=== PATIENT | male | born 1960 | race Caucasian/White ===

== ENCOUNTER 2017-11-08 14:21 | Day surgery (SDC) | payer MEDICARE ==
[~2017-11-08] VITALS: Ht 167.6 cm; Wt 91.1 kg
[~2017-11-08 14:21] MED LIST: ALPR.5; ALPR.5 PO; AMLO10 PO; ASPI325EC PO; AZIT500 PO; AZOR; BENAML10/2 PO; BUME1 PO; BUME2 PO; BUPR150ER PO; BUPR75 PO; CLOB.05TC TP; CLON.1 PO; DULO60 PO; Depo-Testo100 MG/1 M IM; ESCI10 PO; Esgic Tablet1 EACH PO; FISH1000 PO; FURO40 PO; GABA300 PO; HYDACE5 PO; HYDACE5325 PO; HYDROCODONE; IBUP600 PO; IBUP800 PO; LEVE500 PO; LOSA50; METH40; METO50 PO; METO50ER PO; MINO100 PO; MORP60ER; NAPR375 PO; NORITATE; OLME20 PO; ONDA4 PO; OXYACE5T PO; OXYC40ER; OXYC40ER PO; OXYC5; OXYC5 PO; PHENA100 PO; POTCHL10ER PO; POTCHL20ER PO; SPIR25 PO; TAMS.4ER PO; TESTOSTERO200 MG/1 M IM; TESTOSTERONE CYPIONA INJ; TRAM50; TRAM50 PO; VENL25 PO; VENL75ER PO; ZOLP10; ZOLP10 PO; ZOLP12.5 PO; Zofran Odt4 MG SL; [UNRECOGNIZED DRUG - OTHER] PO; [UNRECOGNIZED DRUG - REMARK]
[2017-11-08] MEDS ORDERED: LEVSOD75 (15:23)
[2017-11-08] MEDS ORDERED: GABA300 (15:23)
== END 2017-11-08 16:17 | disposition home or self-care (01) ==
LOC: ORSCSDS 14:21
PROVIDERS: Surgery
PROC: 0DBL8ZX Excision of Transverse Colon, Via Natural or Artificial Opening Endoscopic, Diagnostic (ICD-10-PCS; principal; 2017-11-08 15:30)
DX: Z12.11 Encounter for screening for malignant neoplasm of colon (principal); D12.3 Benign neoplasm of transverse colon; Z86.010 Personal history of colon polyps; Z83.71 Family history of colonic polyps; I12.9 Hypertensive chronic kidney disease with stage 1 through stage 4 chronic kidney disease, or unspecified chronic kidney disease; N18.9 Chronic kidney disease, unspecified; R73.03 Prediabetes; E78.5 Hyperlipidemia, unspecified; F90.9 Attention-deficit hyperactivity disorder, unspecified type; Z79.899 Other long term (current) drug therapy
CPT/HCPCS: 88305; J7120

== ENCOUNTER 2020-10-27 09:35 | Emergency (ER) | payer MEDICARE ==
[~2020-10-27] VITALS: Ht 167.6 cm; Wt 83.9 kg
[~2020-10-27 09:35] MED LIST changes: +GABA300; +LEVSOD75
[2020-10-27 10:20] LABS: Chloride (POC) 103 mmol/L (98-108); Creatinine (POC) 1.5 mg/dL (0.8-1.3); Glucose (ISTAT POC) 127 mg/dL (70-99); Hemoglobin (POC) 15.3 g/dL (13.5-17.5); Potassium (POC) 5.6 mmol/L (3.5-5.5); Sodium (POC) 140 mmol/L (135-148); Total CO2 (POC) 29 mmol/L (21-32)
[2020-10-27] MEDS ORDERED: BUMETANIDE2 M2 PO (10:34)
[2020-10-27] MEDS ORDERED: MELOXICAM TAB 15M (10:34)
[2020-10-27] MEDS ORDERED: TRAMADOL HCL TAB 50M (10:35)
[2020-10-27] MEDS ORDERED: METPRE4DP PO (10:35)
[2020-10-27 11:09] LABS: U Amphetamine Screen DETECTED
[2020-10-27 11:10] LABS: U Barbituate Screen Not Detected; U Benzodiazapine Screen Not Detected; U Buprenorphine Screen Not Detected; U Cannabinoids Screen Not Detected; U Cocaine Screen Not Detected; U Methadone Screen Not Detected; U Methamphetamine Screen DETECTED; U Opiates Screen Not Detected; U Oxycodone Screen Not Detected; U Phencyclidine Screen Not Detected; U Propoxyphene Screen Not Detected
[2020-10-27 11:15] LABS: BASOPHILS ABSOLUTE AUTO 0.03 K/mm3 (0.00-0.23); BASOPHILS PERCENT AUTO 1 % (0-2); EOSINOPHILS ABSOLUTE AUTO 0.14 K/mm3 (0.00-0.68); EOSINOPHILS PERCENT AUTO 3 % (0-6); Hematocrit 44.6 % (37.0-53.0); Hemoglobin 14.6 g/dL (13.5-17.5); IMMATURE GRAN ABSOLUTE AUTO 0.01 K/mm3 (0.00-0.10); IMMATURE GRAN PERCENT AUTO 0 % (0-1); LYMPHOCYTES ABSOLUTE AUTO 0.78 K/mm3 (0.84-5.20); LYMPHOCYTES PERCENT AUTO 16 % (21-46); MONOCYTES ABSOLUTE AUTO 0.37 K/mm3 (0.16-1.47); MONOCYTES PERCENT AUTO 8 % (4-13); Mean Corpuscular HGB 31.7 pg (26.0-34.0); Mean Corpuscular HGB Conc 32.7 g/dL (31.5-36.5); Mean Corpuscular Volume 97 fL (80-100); Mean Platelet Volume 9.3 fL (9.1-12.4); NEUTROPHILS ABSOLUTE AUTO 3.45 K/mm3 (1.96-9.15); NEUTROPHILS PERCENT AUTO 72 % (41-73); Platelet Count 232 K/mm3 (150-400); RDW Coefficient Variation 14.1 % (11.7-14.2); Red Blood Cell Count 4.61 M/mm3 (4.30-5.90); White Blood Cell Count 4.78 K/mm3 (4.00-11.30)
[2020-10-27 11:35] LABS: Alanine Aminotransfer (ALT/SGP 35 U/L (12-78); Albumin/Globulin Ratio 1.1 (0.8-1.8); Alk Phos 92 U/L (50-136); Anion Gap 6 mmol/L (6-16); Aspartate Aminotrans (AST/SGOT 47 U/L (12-37); Bilirubin, Total 0.4 mg/dL (0.1-1.0); Blood Urea Nitrogen 21 mg/dL (8-24); Bun/Creatinine Ratio 14.5 (12.0-20.0); CO2, Blood 30 mmol/L (21-32); Calcium, Blood 9.3 mg/dL (8.5-10.1); Chloride, Blood 104 mmol/L (98-108); Creatinine, Blood 1.45 mg/dL (0.60-1.20); Ethanol (Alcohol), Blood, Med <3 mg/dL; Globulin, Blood 3.6 g/dL (2.2-4.0); Glomerular Filtration Rate 52 (60-); Glucose, Blood 115 mg/dL (70-99); Potassium, Blood 3.3 mmol/L (3.5-5.5); Sodium, Blood 140 mmol/L (136-145); Total Protein, Blood 7.6 g/dL (6.4-8.2)
[2020-10-27] MEDS ORDERED: CYCL10 PO (13:13)
[2020-10-27] MEDS ORDERED: TRAM50 PO (13:13)
== END 2020-10-27 13:55 | disposition home or self-care (01) ==
LOC: ER 09:35
PROVIDERS: Emergency Medicine
DX: S01.01XA Laceration without foreign body of scalp, initial encounter (principal); M54.5 Low back pain; R56.9 Unspecified convulsions; N18.9 Chronic kidney disease, unspecified; Z99.2 Dependence on renal dialysis; Z79.899 Other long term (current) drug therapy; W18.30XA Fall on same level, unspecified, initial encounter
CPT/HCPCS: 12002; 70450; 72100; 72125; 80047; 80053; 85014; 85025; 96374-59; 96375-59; 99284-25; A9270; G0480; J2060; J2405; J3010

== ENCOUNTER 2020-11-06 12:46 | Emergency (ER) | payer MEDICARE ==
[~2020-11-06] VITALS: Ht 177.8 cm; Wt 95.2 kg
[~2020-11-06 12:46] MED LIST changes: +BUMETANIDE2 M2 PO; +CYCL10 PO; +MELOXICAM TAB 15M; +METPRE4DP PO; +TRAMADOL HCL TAB 50M
== END 2020-11-06 13:05 | disposition home or self-care (01) ==
LOC: ER 12:46
DX: S01.01XD Laceration without foreign body of scalp, subsequent encounter (principal); N18.9 Chronic kidney disease, unspecified; Z79.899 Other long term (current) drug therapy; W18.30XD Fall on same level, unspecified, subsequent encounter

== ENCOUNTER 2021-05-02 13:59 | Emergency (ER) | payer MEDICARE ==
[~2021-05-02] VITALS: Ht 170.2 cm; Wt 83.9 kg
[~2021-05-02 13:59] MED LIST changes: -BUMETANIDE2 M2 PO; -MELOXICAM TAB 15M; -TRAM50
[2021-05-02 14:43] LABS: BASOPHILS ABSOLUTE AUTO 0.03 K/mm3 (0.00-0.23); BASOPHILS PERCENT AUTO 0 % (0-2); EOSINOPHILS PERCENT AUTO 0 % (0-6); Hematocrit 37.8 % (37.0-53.0); Hemoglobin 13.1 g/dL (13.5-17.5); IMMATURE GRAN ABSOLUTE AUTO 0.03 K/mm3 (0.00-0.10); IMMATURE GRAN PERCENT AUTO 0 % (0-1); LYMPHOCYTES ABSOLUTE AUTO 0.68 K/mm3 (0.84-5.20); LYMPHOCYTES PERCENT AUTO 7 % (21-46); MONOCYTES ABSOLUTE AUTO 0.41 K/mm3 (0.16-1.47); MONOCYTES PERCENT AUTO 4 % (4-13); Mean Corpuscular HGB 32.8 pg (26.0-34.0); Mean Corpuscular HGB Conc 34.7 g/dL (31.5-36.5); Mean Corpuscular Volume 95 fL (80-100); Mean Platelet Volume 9.4 fL (9.1-12.4); NEUTROPHILS ABSOLUTE AUTO 9.17 K/mm3 (1.96-9.15); NEUTROPHILS PERCENT AUTO 89 % (41-73); Platelet Count 201 K/mm3 (150-400); RDW Coefficient Variation 14.2 % (11.7-14.2); RDW Standard Deviation 48.9 fL (35.1-46.3); Red Blood Cell Count 3.99 M/mm3 (4.30-5.90); White Blood Cell Count 10.32 K/mm3 (4.00-11.30)
[2021-05-02 15:15] LABS: Alanine Aminotransfer (ALT/SGP 31 U/L (12-78); Albumin, Blood 3.3 g/dL (3.4-5.0); Albumin/Globulin Ratio 0.9 (0.8-1.8); Alk Phos 89 U/L (50-136); Anion Gap 20 mmol/L (6-16); Aspartate Aminotrans (AST/SGOT 50 U/L (12-37); Bilirubin, Total 0.4 mg/dL (0.1-1.0); Blood Urea Nitrogen 25 mg/dL (8-24); Bun/Creatinine Ratio 23.6 (12.0-20.0); CO2, Blood 17 mmol/L (21-32); Calcium, Blood 8.5 mg/dL (8.5-10.1); Chloride, Blood 104 mmol/L (98-108); Creatinine, Blood 1.06 mg/dL (0.60-1.20); Globulin, Blood 3.5 g/dL (2.2-4.0); Glomerular Filtration Rate >60 (60-); Glucose, Blood 138 mg/dL (70-99); Potassium, Blood 3.3 mmol/L (3.5-5.5); Sodium, Blood 141 mmol/L (136-145); Total Protein, Blood 6.8 g/dL (6.4-8.2); Troponin I <0.015 ng/mL (0.000-0.040)
[2021-05-02] MEDS ORDERED: ZOLOFT50 MG PO (15:19)
[2021-05-02] MEDS ORDERED: CATAPRES0.1 MG PO (15:19)
[2021-05-02] MEDS ORDERED: LOSA50 PO (15:22)
[2021-05-02] MEDS ORDERED: PANTOPRAZOLE SO40 M2 PO (15:43)
[2021-05-02] MEDS ORDERED: KLOR-CON 1010 ME5 PO (15:44)
[2021-05-02] MEDS ORDERED: PREGABALIN75 MG PO (15:45)
[2021-05-02] MEDS ORDERED: SPIRONOLACTONE25 MG PO (15:45)
[2021-05-02] MEDS ORDERED: BUMETANIDE2 M2 PO (15:46)
[2021-05-02] MEDS ORDERED: DEPO-TESTO200 MG/16 SC (15:46)
[2021-05-02] MEDS ORDERED: TRAM50 PO (15:47)
[2021-05-02] MEDS ORDERED: MOBIC15 MG PO (15:48)
[2021-05-02] MEDS ORDERED: FAMO20 PO (17:14)
[2021-05-02] MEDS ORDERED: ACET500 PO (17:14)
[2021-05-02] MEDS ORDERED: IBUP400 PO (17:14)
[2021-05-02] MEDS ORDERED: OXYC5 PO (20:49)
== END 2021-05-02 21:21 | disposition home or self-care (01) ==
LOC: ER 13:59
PROVIDERS: Emergency Medicine
DX: M51.16 Intervertebral disc disorders with radiculopathy, lumbar region (principal); G89.29 Other chronic pain; R20.2 Paresthesia of skin; R00.0 Tachycardia, unspecified; Z79.899 Other long term (current) drug therapy; Z79.891 Long term (current) use of opiate analgesic; N18.9 Chronic kidney disease, unspecified; G40.909 Epilepsy, unspecified, not intractable, without status epilepticus
CPT/HCPCS: 71046; 72132; 80053; 84484; 85025; 85651; 86140; 93005; 93010; 96365; 96366; 96375; 96376; 99285-25; A9270; J1100; J1170; J1885; J2270; J3475; J7030; Q9967

== ENCOUNTER 2021-05-12 06:54 | Emergency (ER) | payer MEDICARE ==
[~2021-05-12] VITALS: Ht 170.2 cm; Wt 83.0 kg
[~2021-05-12 06:54] MED LIST changes: +ACET500 PO; +BUMETANIDE2 M2 PO; +CATAPRES0.1 MG PO; +DEPO-TESTO200 MG/16 SC; +FAMO20 PO; +IBUP400 PO; +KLOR-CON 1010 ME5 PO; +LOSA50 PO; +MOBIC15 MG PO; +PANTOPRAZOLE SO40 M2 PO; +PREGABALIN75 MG PO; +SPIRONOLACTONE25 MG PO; +ZOLOFT50 MG PO
[2021-05-12] MEDS ORDERED: METPRE4DP PO (08:14)
== END 2021-05-12 08:56 | disposition home or self-care (01) ==
LOC: ER 06:54
DX: Z04.3 Encounter for examination and observation following other accident (principal); W19.XXXA Unspecified fall, initial encounter
CPT/HCPCS: 99283; A9270; J7512

== ENCOUNTER 2021-05-18 23:20 | Emergency (ER) | payer OTHER, MEDICARE ==
[~2021-05-18] VITALS: Ht 170.2 cm; Wt 82.5 kg
== END 2021-05-19 01:01 | disposition home or self-care (01) ==
LOC: ER 23:20
DX: S30.0XXA Contusion of lower back and pelvis, initial encounter (principal); I12.9 Hypertensive chronic kidney disease with stage 1 through stage 4 chronic kidney disease, or unspecified chronic kidney disease; N18.9 Chronic kidney disease, unspecified; G40.909 Epilepsy, unspecified, not intractable, without status epilepticus; Z79.899 Other long term (current) drug therapy; W01.0XXA Fall on same level from slipping, tripping and stumbling without subsequent striking against object, initial encounter
CPT/HCPCS: 96374; 99283; A9270; J1885

== ENCOUNTER 2021-05-30 01:45 | Emergency (ER) | payer MEDICARE ==
[~2021-05-30] VITALS: Ht 170.2 cm; Wt 83.9 kg
[2021-05-30] MEDS ORDERED: CYCL10 PO (05:33)
[2021-05-30] MEDS ORDERED: IBUP600 PO (05:33)
== END 2021-05-30 05:50 | disposition home or self-care (01) ==
LOC: ER 01:45
DX: G89.29 Other chronic pain (principal); M54.9 Dorsalgia, unspecified; I12.9 Hypertensive chronic kidney disease with stage 1 through stage 4 chronic kidney disease, or unspecified chronic kidney disease; N18.9 Chronic kidney disease, unspecified; Z79.899 Other long term (current) drug therapy
CPT/HCPCS: 96372; 99283-25; A9270; J1885

== ENCOUNTER 2021-05-31 14:17 | Emergency (ER) | payer MEDICARE ==
[~2021-05-31] VITALS: Ht 170.2 cm; Wt 83.0 kg
== END 2021-05-31 15:48 | disposition home or self-care (01) ==
LOC: ER 14:17
DX: G89.29 Other chronic pain (principal); M54.50 Low back pain, unspecified; G40.909 Epilepsy, unspecified, not intractable, without status epilepticus; I10 Essential (primary) hypertension; Z79.899 Other long term (current) drug therapy
CPT/HCPCS: 96372; 99283-25; A9270; J1885

== ENCOUNTER 2021-06-04 17:49 | Emergency (ER) | payer MEDICARE ==
[~2021-06-04] VITALS: Ht 170.2 cm; Wt 83.9 kg
[2021-06-04 18:37] LABS: BASOPHILS ABSOLUTE AUTO 0.04 K/mm3 (0.00-0.23); BASOPHILS PERCENT AUTO 1 % (0-2); EOSINOPHILS ABSOLUTE AUTO 0.15 K/mm3 (0.00-0.68); EOSINOPHILS PERCENT AUTO 3 % (0-6); Hematocrit 36.8 % (37.0-53.0); Hemoglobin 12.1 g/dL (13.5-17.5); IMMATURE GRAN ABSOLUTE AUTO 0.07 K/mm3 (0.00-0.10); IMMATURE GRAN PERCENT AUTO 1 % (0-1); LYMPHOCYTES ABSOLUTE AUTO 1.06 K/mm3 (0.84-5.20); LYMPHOCYTES PERCENT AUTO 19 % (21-46); MONOCYTES ABSOLUTE AUTO 0.43 K/mm3 (0.16-1.47); MONOCYTES PERCENT AUTO 8 % (4-13); Mean Corpuscular HGB 33.4 pg (26.0-34.0); Mean Corpuscular HGB Conc 32.9 g/dL (31.5-36.5); Mean Corpuscular Volume 102 fL (80-100); NEUTROPHILS ABSOLUTE AUTO 3.81 K/mm3 (1.96-9.15); NEUTROPHILS PERCENT AUTO 69 % (41-73); RDW Coefficient Variation 17.3 % (11.7-14.2); RDW Standard Deviation 63.8 fL (35.1-46.3); Red Blood Cell Count 3.62 M/mm3 (4.30-5.90); White Blood Cell Count 5.56 K/mm3 (4.00-11.30)
[2021-06-04 18:40] LABS: Mean Platelet Volume 9.8 fL (9.1-12.4); Platelet Count 161 K/mm3 (150-400)
[2021-06-04 18:44] LABS: Albumin, Blood 3.2 g/dL (3.4-5.0); Albumin/Globulin Ratio 1.1 (0.8-1.8); Bilirubin, Total 0.6 mg/dL (0.1-1.0); Bun/Creatinine Ratio 11.3 (12.0-20.0); Calcium, Blood 7.6 mg/dL (8.5-10.1); Creatinine, Blood 2.22 mg/dL (0.60-1.20); Globulin, Blood 2.8 g/dL (2.2-4.0); Potassium, Blood 3.7 mmol/L (3.5-5.5)
[2021-06-04 18:53] LABS: Acetaminophen, Random <2.0 ug/mL (10.0-30.0); Ethanol (Alcohol), Blood, Med <3 mg/dL
[2021-06-04 19:09] LABS: Influenza A, PCR NEGATIVE (NEGATIVE); Influenza B, PCR NEGATIVE (NEGATIVE); Resp Syncytial Virus, PCR NEGATIVE (NEGATIVE); SARS-Cov-2 (COVID-19) PCR, MMC NEGATIVE (NEGATIVE)
== END 2021-06-04 21:43 | disposition short-term general hospital (02) ==
LOC: ER 17:49
PROVIDERS: Student in an Organized Health Care Education/Training Program
DX: N17.9 Acute kidney failure, unspecified (principal); F11.90 Opioid use, unspecified, uncomplicated; R15.9 Full incontinence of feces; R32 Unspecified urinary incontinence; R20.0 Anesthesia of skin; E83.42 Hypomagnesemia; G89.29 Other chronic pain; M54.50 Low back pain, unspecified; I12.9 Hypertensive chronic kidney disease with stage 1 through stage 4 chronic kidney disease, or unspecified chronic kidney disease; N18.9 Chronic kidney disease, unspecified; G40.909 Epilepsy, unspecified, not intractable, without status epilepticus; Z20.822 Contact with and (suspected) exposure to COVID-19; Z79.899 Other long term (current) drug therapy
CPT/HCPCS: 0241U; 36415; 72128; 72131; 80053; 83735; 85025; 93005; 93010; 96365; 99285-25; A9270; G0480; J3475; J7120

== ENCOUNTER 2021-06-15 22:59 | Emergency (ER) | payer MEDICARE ==
[~2021-06-15] VITALS: Ht 170.2 cm; Wt 83.0 kg
== END 2021-06-16 01:20 | disposition home or self-care (01) ==
LOC: ER 22:59
DX: S09.90XA Unspecified injury of head, initial encounter (principal); M54.9 Dorsalgia, unspecified; G89.29 Other chronic pain; W01.10XA Fall on same level from slipping, tripping and stumbling with subsequent striking against unspecified object, initial encounter; Z79.899 Other long term (current) drug therapy; Z79.52 Long term (current) use of systemic steroids; I10 Essential (primary) hypertension; N18.9 Chronic kidney disease, unspecified; G40.909 Epilepsy, unspecified, not intractable, without status epilepticus
CPT/HCPCS: 70450; 72125; 96372; 99284-25; A9270; J1885

== ENCOUNTER 2021-06-18 04:06 | Emergency (ER) | payer MEDICARE ==
[~2021-06-18] VITALS: Ht 177.8 cm; Wt 90.7 kg
[2021-06-18] MEDS ORDERED: METPRE4DP PO (08:39)
[2021-06-18] MEDS ORDERED: GABA300 PO (08:40)
[2021-06-18] MEDS ORDERED: Robaxin750 MG PO (08:40)
== END 2021-06-18 09:13 | disposition home or self-care (01) ==
LOC: ER 04:06
DX: M54.17 Radiculopathy, lumbosacral region (principal); G89.29 Other chronic pain; M48.061 Spinal stenosis, lumbar region without neurogenic claudication; I12.9 Hypertensive chronic kidney disease with stage 1 through stage 4 chronic kidney disease, or unspecified chronic kidney disease; N18.9 Chronic kidney disease, unspecified; G40.909 Epilepsy, unspecified, not intractable, without status epilepticus; Z79.899 Other long term (current) drug therapy
CPT/HCPCS: 72100; 72131; 99284-25; A9270

== ENCOUNTER 2021-06-20 03:46 | Emergency (ER) | payer MEDICARE ==
[~2021-06-20] VITALS: Ht 170.2 cm; Wt 83.9 kg
[~2021-06-20 03:46] MED LIST changes: +Robaxin750 MG PO
== END 2021-06-20 05:00 | disposition home or self-care (01) ==
LOC: ER 03:46
DX: M54.50 Low back pain, unspecified (principal); R20.2 Paresthesia of skin; G40.909 Epilepsy, unspecified, not intractable, without status epilepticus; I10 Essential (primary) hypertension; Z79.899 Other long term (current) drug therapy; W18.30XA Fall on same level, unspecified, initial encounter
CPT/HCPCS: 99283; A9270

== ENCOUNTER 2021-11-06 15:50 | Emergency (ER) | payer MEDICARE ==
[~2021-11-06] VITALS: Ht 170.2 cm; Wt 86.2 kg
[2021-11-06 16:43] LABS: BASOPHILS ABSOLUTE AUTO 0.03 K/mm3 (0.00-0.23); BASOPHILS PERCENT AUTO 1 % (0-2); EOSINOPHILS ABSOLUTE AUTO 0.39 K/mm3 (0.00-0.68); EOSINOPHILS PERCENT AUTO 7 % (0-6); Hematocrit 36.6 % (37.0-53.0); Hemoglobin 11.8 g/dL (13.5-17.5); IMMATURE GRAN ABSOLUTE AUTO 0.01 K/mm3 (0.00-0.10); IMMATURE GRAN PERCENT AUTO 0 % (0-1); LYMPHOCYTES ABSOLUTE AUTO 1.19 K/mm3 (0.84-5.20); LYMPHOCYTES PERCENT AUTO 20 % (21-46); MONOCYTES ABSOLUTE AUTO 0.68 K/mm3 (0.16-1.47); MONOCYTES PERCENT AUTO 12 % (4-13); Mean Corpuscular HGB 29.6 pg (26.0-34.0); Mean Corpuscular HGB Conc 32.2 g/dL (31.5-36.5); Mean Corpuscular Volume 92 fL (80-100); Mean Platelet Volume 9.3 fL (9.1-12.4); NEUTROPHILS PERCENT AUTO 61 % (41-73); Platelet Count 262 K/mm3 (150-400); RDW Coefficient Variation 15.2 % (11.7-14.2); RDW Standard Deviation 51.4 fL (35.1-46.3); Red Blood Cell Count 3.99 M/mm3 (4.30-5.90)
[2021-11-06 16:56] LABS: Albumin, Blood 3.5 g/dL (3.4-5.0); Albumin/Globulin Ratio 0.9 (0.8-1.8); Bilirubin, Total 0.7 mg/dL (0.1-1.0); Bun/Creatinine Ratio 15.2 (12.0-20.0); Calcium, Blood 9.1 mg/dL (8.5-10.1); Creatinine, Blood 1.05 mg/dL (0.60-1.20); Globulin, Blood 3.9 g/dL (2.2-4.0); Potassium, Blood 3.9 mmol/L (3.5-5.5); Total Protein, Blood 7.4 g/dL (6.4-8.2)
== END 2021-11-06 18:15 | disposition home or self-care (01) ==
LOC: ER 15:50
PROVIDERS: Physician Assistant
DX: N99.89 Other postprocedural complications and disorders of genitourinary system (principal); K91.89 Other postprocedural complications and disorders of digestive system; R15.9 Full incontinence of feces; R32 Unspecified urinary incontinence; I12.9 Hypertensive chronic kidney disease with stage 1 through stage 4 chronic kidney disease, or unspecified chronic kidney disease; N18.9 Chronic kidney disease, unspecified; G40.909 Epilepsy, unspecified, not intractable, without status epilepticus; Z79.899 Other long term (current) drug therapy; Y83.9 Surgical procedure, unspecified as the cause of abnormal reaction of the patient, or of later complication, without mention of misadventure at the time of the procedure
CPT/HCPCS: 80053; 83690; 85025

== ENCOUNTER 2022-08-06 00:59 | Emergency (ER) | payer MEDICARE ==
[~2022-08-06] VITALS: Ht 167.6 cm; Wt 95.2 kg
[2022-08-06 01:51] LABS: BASOPHILS ABSOLUTE AUTO 0.04 K/mm3 (0.00-0.23); BASOPHILS PERCENT AUTO 1 % (0-2); EOSINOPHILS ABSOLUTE AUTO 0.12 K/mm3 (0.00-0.68); EOSINOPHILS PERCENT AUTO 2 % (0-6); Hemoglobin 12.7 g/dL (13.5-17.5); IMMATURE GRAN ABSOLUTE AUTO 0.05 K/mm3 (0.00-0.10); IMMATURE GRAN PERCENT AUTO 1 % (0-1); LYMPHOCYTES ABSOLUTE AUTO 1.42 K/mm3 (0.84-5.20); LYMPHOCYTES PERCENT AUTO 19 % (21-46); MONOCYTES ABSOLUTE AUTO 0.71 K/mm3 (0.16-1.47); MONOCYTES PERCENT AUTO 10 % (4-13); Mean Corpuscular HGB 23.6 pg (26.0-34.0); Mean Corpuscular HGB Conc 30.2 g/dL (31.5-36.5); Mean Corpuscular Volume 78 fL (80-100); Mean Platelet Volume 10.7 fL (9.1-12.4); NEUTROPHILS ABSOLUTE AUTO 5.09 K/mm3 (1.96-9.15); NEUTROPHILS PERCENT AUTO 69 % (41-73); Platelet Count 277 K/mm3 (150-400); RDW Coefficient Variation 20.8 % (11.7-14.2); RDW Standard Deviation 56.4 fL (35.1-46.3); Red Blood Cell Count 5.38 M/mm3 (4.30-5.90); White Blood Cell Count 7.43 K/mm3 (4.00-11.30)
[2022-08-06 01:54] LABS: Bun/Creatinine Ratio 13.1 (12.0-20.0); Calcium, Blood 8.5 mg/dL (8.5-10.1); Creatinine, Blood 1.37 mg/dL (0.60-1.20); Potassium, Blood 3.8 mmol/L (3.5-5.5)
[2022-08-06] MEDS ORDERED: LIDO700A20 TOP (02:21)
== END 2022-08-06 02:35 | disposition home or self-care (01) ==
LOC: ER 00:59
PROVIDERS: Emergency Medicine
DX: S70.01XA Contusion of right hip, initial encounter (principal); I12.9 Hypertensive chronic kidney disease with stage 1 through stage 4 chronic kidney disease, or unspecified chronic kidney disease; N18.9 Chronic kidney disease, unspecified; W18.09XA Striking against other object with subsequent fall, initial encounter; Z79.899 Other long term (current) drug therapy
CPT/HCPCS: 36415; 73502; 80048; 85025; J2270; J2405

== ENCOUNTER → 2022-08-19 | Outpatient (CLI) | payer MEDICARE ==
[~2022-08-19] MED LIST changes: +LIDO700A20 TOP
[2022-08-22 14:29] LABS: Protein, Urine Quantitative 7.1 mg/dL (0.0-11.9)
[2022-08-22 14:35] LABS: Microalbumin, Urine Quant. <5.000 mg/L (0.000-20.000)
== END | disposition home or self-care (01) ==
LOC: LAB SHORT 12:20 → LAB 12:20
PROVIDERS: Internal Medicine Nephrology
DX: N18.30 Chronic kidney disease, stage 3 unspecified (principal); N40.1 Benign prostatic hyperplasia with lower urinary tract symptoms; R76.9 Abnormal immunological finding in serum, unspecified; R94.6 Abnormal results of thyroid function studies
CPT/HCPCS: 81050; 82043; 82570; 84156

== ENCOUNTER → 2022-11-21 | Outpatient (CLI) | payer MEDICARE ==
[2022-11-21 18:10] LABS: BASOPHILS ABSOLUTE AUTO 0.02 K/mm3 (0.00-0.23); BASOPHILS PERCENT AUTO 0 % (0-2); EOSINOPHILS ABSOLUTE AUTO 0.07 K/mm3 (0.00-0.68); EOSINOPHILS PERCENT AUTO 1 % (0-6); Hematocrit 47.9 % (37.0-53.0); Hemoglobin 14.8 g/dL (13.5-17.5); IMMATURE GRAN ABSOLUTE AUTO 0.03 K/mm3 (0.00-0.10); IMMATURE GRAN PERCENT AUTO 0 % (0-1); LYMPHOCYTES ABSOLUTE AUTO 0.89 K/mm3 (0.84-5.20); LYMPHOCYTES PERCENT AUTO 10 % (21-46); MONOCYTES PERCENT AUTO 13 % (4-13); Mean Corpuscular HGB 24.2 pg (26.0-34.0); Mean Corpuscular HGB Conc 30.9 g/dL (31.5-36.5); Mean Corpuscular Volume 78 fL (80-100); Mean Platelet Volume 9.9 fL (9.1-12.4); NEUTROPHILS ABSOLUTE AUTO 6.66 K/mm3 (1.96-9.15); NEUTROPHILS PERCENT AUTO 76 % (41-73); Platelet Count 271 K/mm3 (150-400); RDW Coefficient Variation 21.2 % (11.7-14.2); RDW Standard Deviation 56.1 fL (35.1-46.3); Red Blood Cell Count 6.11 M/mm3 (4.30-5.90); White Blood Cell Count 8.77 K/mm3 (4.00-11.30)
[2022-11-21 18:28] LABS: Albumin, Blood 3.8 g/dL (3.4-5.0); Albumin/Globulin Ratio 0.9 (0.8-1.8); Bilirubin, Total 0.6 mg/dL (0.1-1.0); Bun/Creatinine Ratio 14.8 (12.0-20.0); Calcium, Blood 9.3 mg/dL (8.5-10.1); Creatinine, Blood 2.03 mg/dL (0.60-1.20); Globulin, Blood 4.2 g/dL (2.2-4.0); Potassium, Blood 3.2 mmol/L (3.5-5.5); Uric Acid, Blood 9.2 mg/dL (3.5-7.2)
== END | disposition home or self-care (01) ==
LOC: LAB SHORT 18:05 → LAB 18:05
PROVIDERS: Chiropractor
DX: M79.89 Other specified soft tissue disorders (principal)
CPT/HCPCS: 80053; 84550; 85025

== ENCOUNTER 2023-01-23 08:08 | Day surgery (SDC) | payer MEDICARE ==
[~2023-01-23] VITALS: Ht 167.6 cm; Wt 94.9 kg
[2023-01-23] MEDS ORDERED: TRAM50 (08:56)
[2023-01-23] MEDS ORDERED: NORTRIPTYLINE H2512 PO (08:57)
[2023-01-23 10:24] VITALS: BP 105/80
--- NOTE | 2023-01-23 10:27 | NUR ---
01/23/23 Karin7 Kendall Novak IV DCD INTACT WITH PT TOLERATING WELL
== END 2023-01-23 10:15 | disposition home or self-care (01) ==
LOC: ORSCSDS 08:08
PROVIDERS: Surgery
PROC: 0DJD8ZZ Inspection of Lower Intestinal Tract, Via Natural or Artificial Opening Endoscopic (ICD-10-PCS; principal; 2023-01-23 09:15)
DX: Z12.11 Encounter for screening for malignant neoplasm of colon (principal); Z86.010 Personal history of colon polyps; I12.9 Hypertensive chronic kidney disease with stage 1 through stage 4 chronic kidney disease, or unspecified chronic kidney disease; N18.9 Chronic kidney disease, unspecified; F90.9 Attention-deficit hyperactivity disorder, unspecified type; E78.5 Hyperlipidemia, unspecified; F32.A Depression, unspecified; Z79.899 Other long term (current) drug therapy
CPT/HCPCS: J2704; J7120

== ENCOUNTER → 2023-05-07 | Outpatient (CLI) | payer MEDICARE ==
[~2023-05-07] MED LIST changes: +NORTRIPTYLINE H2512 PO; +TRAM50
== END ==
LOC: LAB 11:36 → LAB SHORT 11:36
DX: E29.1 Testicular hypofunction (principal)
CPT/HCPCS: 84403

== ENCOUNTER → 2023-05-23 | Outpatient (CLI) | payer MEDICARE | LOC: LAB SHORT 12:00 → LAB 12:00 → LAB SHORT 05-24 15:33 | DX: B35.4 Tinea corporis (principal); L71.8 Other rosacea | CPT/HCPCS: 87102 ==

== ENCOUNTER 2023-12-27 11:29 | Emergency (ER) | payer OTHER ==
[~2023-12-27] VITALS: Ht 167.6 cm; Wt 81.2 kg
[2023-12-27] MEDS ORDERED: OxyCODONE HCL 5 MG TAB PO ONE (14:10)
[2023-12-27] MEDS ORDERED: Ondansetron HCl 2 MG / ML 2ML Vial IV ONE (15:40)
[2023-12-27] MEDS ORDERED: LORazepam 2 MG/ML 1ML Injection IV ONE (15:40)
[2023-12-27] MEDS ORDERED: HYDROmorphone HCl/Pf 1MG SYR IV ONE ×2 (15:40→16:35)
[2023-12-27] MEDS ORDERED: PREG150 PO (16:17)
[2023-12-27] MEDS ORDERED: KLOR-CON 1010 ME9 (16:18)
[2023-12-27] MEDS ORDERED: BUMETANIDE2 M6 (16:18)
[2023-12-27] MEDS ORDERED: ZOLOFT50 MG (16:18)
[2023-12-27] MEDS ORDERED: TRAM50 PO (19:01)
[2023-12-27 19:45] VITALS: BP 121/82
== END 2023-12-27 19:54 | disposition home or self-care (01) ==
LOC: ER 11:29
DX: M48.061 Spinal stenosis, lumbar region without neurogenic claudication (principal); M46.46 Discitis, unspecified, lumbar region; I12.9 Hypertensive chronic kidney disease with stage 1 through stage 4 chronic kidney disease, or unspecified chronic kidney disease; N18.30 Chronic kidney disease, stage 3 unspecified; W18.30XA Fall on same level, unspecified, initial encounter; Z79.899 Other long term (current) drug therapy
CPT/HCPCS: 70450; 72100; 72125; 72158; 96374-59; 96375-59; 96376-59; 99284-25; A9270; A9579; J1170; J2060; J2405

== ENCOUNTER 2024-02-13 07:43 | Emergency (ER) | payer OTHER ==
[~2024-02-13] VITALS: Ht 167.6 cm; Wt 83.9 kg
[~2024-02-13 07:43] MED LIST changes: +BUMETANIDE2 M6; +KLOR-CON 1010 ME9; +PRED20 PO; +PREG150 PO; +ZOLOFT50 MG
[2024-02-13 08:06] VITALS: BP 152/97
[2024-02-13] MEDS ORDERED: Methyl Salicylate/Menth/Camph 57 GM TUBE TOP ONE (08:20)
[2024-02-13] MEDS ORDERED: Methocarbamol 500 MG Tab PO ONE (08:20)
[2024-02-13] MEDS ORDERED: Ketorolac Tromethamine 30mg Vial IM ONE (08:20)
[2024-02-13] MEDS ORDERED: Acetaminophen 500 MG Tab PO ONE (08:20)
[2024-02-13] MEDS ORDERED: Lidocaine 4% 1 Patch TOP ONE (09:30)
[2024-02-13] MEDS ORDERED: Robaxin750 MG PO (09:38)
[2024-02-13] MEDS ORDERED: METPRE4DP PO (09:38)
[2024-02-13] MEDS ORDERED: Neurontin 100100 MG PO (21:51)
== END 2024-02-13 09:53 | disposition home or self-care (01) ==
LOC: ER 07:43
DX: M62.830 Muscle spasm of back (principal); G89.29 Other chronic pain; I12.9 Hypertensive chronic kidney disease with stage 1 through stage 4 chronic kidney disease, or unspecified chronic kidney disease; N18.30 Chronic kidney disease, stage 3 unspecified; Z79.899 Other long term (current) drug therapy; M54.50 Low back pain, unspecified; W01.0XXA Fall on same level from slipping, tripping and stumbling without subsequent striking against object, initial encounter; G40.909 Epilepsy, unspecified, not intractable, without status epilepticus
CPT/HCPCS: 72070; 96372; 96374; 96375; 99283-25; 99284-25; A9270; J1885

== ENCOUNTER 2024-04-28 15:20 | Inpatient (IN) | payer OTHER ==
[~2024-04-28] VITALS: Ht 170.2 cm; Wt 85.5 kg
[~2024-04-28 15:20] MED LIST changes: -BUMETANIDE2 M6; +BUMETANIDE2 M6 PO; -KLOR-CON 1010 ME9; +KLOR-CON 1010 ME9 PO; +Neurontin 100100 MG PO
[2024-04-28] MEDS ORDERED: LORazepam 2 MG/ML 1ML Injection IV ONE (16:35)
[2024-04-28] MEDS ORDERED: DiphenhydrAMINE HCl 50 MG/ML 1ML Vial IV ONE (16:35)
[2024-04-28 17:04] LABS: BASOPHILS ABSOLUTE AUTO 0.03 K/mm3 (0.00-0.23); BASOPHILS PERCENT AUTO 0 % (0-2); EOSINOPHILS ABSOLUTE AUTO 0.15 K/mm3 (0.00-0.68); EOSINOPHILS PERCENT AUTO 2 % (0-6); Hematocrit 43.3 % (37.0-53.0); Hemoglobin 14.1 g/dL (13.5-17.5); IMMATURE GRAN ABSOLUTE AUTO 0.01 K/mm3 (0.00-0.10); IMMATURE GRAN PERCENT AUTO 0 % (0-1); LYMPHOCYTES ABSOLUTE AUTO 1.35 K/mm3 (0.84-5.20); LYMPHOCYTES PERCENT AUTO 19 % (21-46); MONOCYTES ABSOLUTE AUTO 0.78 K/mm3 (0.16-1.47); MONOCYTES PERCENT AUTO 11 % (4-13); Mean Corpuscular HGB 28.2 pg (26.0-34.0); Mean Corpuscular HGB Conc 32.6 g/dL (31.5-36.5); Mean Corpuscular Volume 87 fL (80-100); Mean Platelet Volume 10.8 fL (9.1-12.4); NEUTROPHILS ABSOLUTE AUTO 4.76 K/mm3 (1.96-9.15); NEUTROPHILS PERCENT AUTO 67 % (41-73); Platelet Count 198 K/mm3 (150-400); RDW Coefficient Variation 15.9 % (11.7-14.2); RDW Standard Deviation 50.2 fL (35.1-46.3); White Blood Cell Count 7.08 K/mm3 (4.00-11.30)
[2024-04-28 17:24] LABS: Ethanol (Alcohol), Blood, Med <3 mg/dL; Free Thyroxine 0.95 ng/dL (0.70-1.60); Magnesium, Blood 1.9 mg/dL (1.6-2.4); Salicylate <1.7 mg/dL (2.8-20.0)
[2024-04-28 17:35] LABS: Acetaminophen, Random <2.0 ug/mL (10.0-30.0); Alanine Aminotransfer (ALT/SGP 24 U/L (12-78); Albumin, Blood 3.9 g/dL (3.4-5.0); Albumin/Globulin Ratio 1.1 (0.8-1.8); Alk Phos 100 U/L (50-136); Anion Gap 10 mmol/L (3-11); Aspartate Aminotrans (AST/SGOT 38 U/L (12-37); Bilirubin, Total 0.6 mg/dL (0.1-1.0); Blood Urea Nitrogen 22 mg/dL (8-24); CO2, Blood 29 mmol/L (21-32); Calcium, Blood 9.1 mg/dL (8.5-10.1); Chloride, Blood 103 mmol/L (98-108); Creatinine, Blood 1.69 mg/dL (0.60-1.20); Globulin, Blood 3.4 g/dL (2.2-4.0); Glomerular Filtration Rate 44 (60-); Glucose, Blood 58 mg/dL (70-99); Potassium, Blood 3.7 mmol/L (3.5-5.5); Sodium, Blood 138 mmol/L (136-145); Total Protein, Blood 7.3 g/dL (6.4-8.2)
[2024-04-28 17:35] LABS: Base Excess Venous 5.6 mmol/L; Bicarbonate Venous 28.2 mmol/L (24.0-30.0); PCO2 Venous 49.3 mmHg (38-42)
[2024-04-28] MEDS ORDERED: Naloxone HCl 0.4MG / ML 1ML Vial ONE (18:05)
[2024-04-28] MEDS ORDERED: Naloxone HCl 0.4MG / ML 1ML Vial IV ONE (18:45)
[2024-04-28] MEDS ORDERED: Dextrose 50% 50 ML Vial ONE (18:57)
[2024-04-28] MEDS ORDERED: Dextrose 50% 50 ML Syringe IV ONE ×3 (19:00→19:20)
[2024-04-28 19:06] LABS: U Amphetamine Screen Not Detected; U Barbituate Screen Not Detected; U Benzodiazapine Screen Not Detected; U Buprenorphine Screen Not Detected; U Cannabinoids Screen DETECTED; U Cocaine Screen Not Detected; U Methadone Screen Not Detected; U Methamphetamine Screen Not Detected; U Opiates Screen Not Detected; U Oxycodone Screen Not Detected; U Phencyclidine Screen Not Detected
[2024-04-28] MEDS ORDERED: Dextrose 50% 50 ML Vial IV ONE (19:25)
[2024-04-28] MEDS ORDERED: HydrALAZINE HCl 20 MG / ML 1ML Vial IV PRN (20:00)
[2024-04-28] MEDS ORDERED: ChlordiazePOXIDE 25 MG Cap PO PRN (20:00)
[2024-04-28] MEDS ORDERED: D5W-1/2NS KCl 20mEq 1,000 ML IV SCH (20:00)
[2024-04-28] MEDS ORDERED: LORazepam 2 MG/ML 1ML Injection IV PRN (20:00)
[2024-04-28] MEDS ORDERED: FLU VACC TS2024-25(6MOS UP)/PF 45 MCG/0.5 ML SYRINGE IM SCH (20:00)
[2024-04-28 20:27] LABS: Base Excess Venous 4.4 mmol/L; Bicarbonate Venous 27.1 mmol/L (24.0-30.0); PCO2 Venous 55.7 mmHg (38-42); pH Blood Venous 7.34 (7.34-7.37)
[2024-04-28] MEDS ORDERED: Folic Acid 1 MG in NS 50 ML IV SCH (20:30)
[2024-04-28] MEDS ORDERED: Thiamine HCl 100 MG in NS 50 ML IV SCH (21:00)
[2024-04-28 21:48] LABS: Base Excess Venous 3.6 mmol/L; Bicarbonate Venous 26.7 mmol/L (24.0-30.0); PCO2 Venous 50.3 mmHg (38-42); pH Blood Venous 7.37 (7.34-7.37)
[2024-04-28] MEDS ORDERED: D5W-1/2NS KCl 20mEq 1,000 ML IV ONE (22:25)
[2024-04-28] MEDS ORDERED: NS 500 ML IV ONE (23:00)
[2024-04-29] VITALS (26 sets, daily range): BP systolic 88–142; BP diastolic 60–94
[2024-04-29] MEDS ORDERED: PREG150 PO (00:46)
[2024-04-29] MEDS ORDERED: Nortriptyline H50 MG PO (00:47)
--- NOTE | 2024-04-29 03:28 | NUR ---
ARRIVAL TO ICU PT ARRIVED TO ICU 6 AT 0025 VIA ED BED AND TRANSFERED OVER TO ICU BED VIA SLIDE SHEET. HE ARRIVED AWAKE AND TALKING TO STAFF; HE IS ORIENTED TO NAME ONLY, NOT PLACE, TIME OR SITUATION; CHALLENGING TO FOLLOWING THE CONVERSATION WHEN HE ANSWERS A QUESTION; HE FELL ASLEEP MID SENTENCE. SPO2 >95% WHILE AWAKE AND ON RA; WHILE SLEEPING NEEDS 2L NC TO MAINTAIN >95%. AFEBRILE. HR 80'S. SBP 100'S. ZAMORA PLACED IN ED FOR RETENTION. D5 1/2NS WITH 20MEQ KCL INFUSING AT 125ML/HR. MOVING ALL EXTREMITIES AND REPOSITIONING SELF IN BED. SEE ADMISSION ASSESSMENT FOR FULL ASSESSMENT.
[2024-04-29 04:03] LABS: BASOPHILS ABSOLUTE AUTO 0.02 K/mm3 (0.00-0.23); BASOPHILS PERCENT AUTO 0 % (0-2); EOSINOPHILS ABSOLUTE AUTO 0.11 K/mm3 (0.00-0.68); EOSINOPHILS PERCENT AUTO 2 % (0-6); Hematocrit 41.8 % (37.0-53.0); Hemoglobin 13.3 g/dL (13.5-17.5); IMMATURE GRAN ABSOLUTE AUTO 0.01 K/mm3 (0.00-0.10); IMMATURE GRAN PERCENT AUTO 0 % (0-1); LYMPHOCYTES ABSOLUTE AUTO 1.04 K/mm3 (0.84-5.20); LYMPHOCYTES PERCENT AUTO 21 % (21-46); MONOCYTES ABSOLUTE AUTO 0.63 K/mm3 (0.16-1.47); MONOCYTES PERCENT AUTO 13 % (4-13); Mean Corpuscular HGB 28.1 pg (26.0-34.0); Mean Corpuscular HGB Conc 31.8 g/dL (31.5-36.5); Mean Corpuscular Volume 88 fL (80-100); NEUTROPHILS ABSOLUTE AUTO 3.08 K/mm3 (1.96-9.15); NEUTROPHILS PERCENT AUTO 63 % (41-73); Platelet Count 187 K/mm3 (150-400); RDW Coefficient Variation 16.1 % (11.7-14.2); RDW Standard Deviation 51.8 fL (35.1-46.3); Red Blood Cell Count 4.73 M/mm3 (4.30-5.90); White Blood Cell Count 4.89 K/mm3 (4.00-11.30)
[2024-04-29 04:24] LABS: Albumin, Blood 3.3 g/dL (3.4-5.0); Bilirubin, Total 0.6 mg/dL (0.1-1.0); Bun/Creatinine Ratio 12.7 (12.0-20.0); Calcium, Blood 8.2 mg/dL (8.5-10.1); Creatinine, Blood 1.58 mg/dL (0.60-1.20); Globulin, Blood 3.3 g/dL (2.2-4.0); Magnesium, Blood 1.9 mg/dL (1.6-2.4); Potassium, Blood 3.6 mmol/L (3.5-5.5); Total Protein, Blood 6.6 g/dL (6.4-8.2)
--- NOTE | 2024-04-29 05:57 | NUR ---
UPDATE ALL MEDS BROUGHT FROM HOME WAS SENT TO PHARMACY.
--- NOTE | 2024-04-29 06:21 | NUR ---
END OF SHIFT SUMMARY NO ACUTE EVENTS SINCE ARRIVAL TO ICU. HE CONT TO BE VERY SOMNULENT BUT WOKE WHEN LABS WERE DRAWN; CONT TO BE CHALLENGING TO UNDERSTAND; ORIENTED ONLY TO SELF. SPO2 >95% ON 2L NC WHILE SLEEPING. AFEBRILE. HR 80'S. SBP 100-120'S. ZAMORA IN PLACE FOR RETENTION WITH ADAQUATE OUTPUT. D5 1/2NS WITH 20KCL INFUSING AT 125ML/HR FOR 1L. WILL REPORT TO AM RN WHEN AVAILABLE.
--- NOTE | 2024-04-29 08:00 | NUR ---
ASSUMPTION OF CARE: RECEIVED REPORT FROM OFF-GOING NURSE. PATIENT RESTING COMFORTABLY -- AROUSABLE TO LIGHT STERNAL RUB. ORIENTED TO SELF/PLACE BUT DISORIENTED TO TIME/LOCATION. FOLLOWS COMMANDS X4 EXTREMITIES WITH EQUAL STRENGTH. 2L NC DUE TO DE-SATURATIONS LAST SHIFT. LUNG SOUNDS RHONCHOROUS AND CONGESTED/PRODUCTIVE COUGH NOTED. BP/HR STABLE. PULSES PALPABLE, SKIN WARM/DRY. PIV X 2 AND ZAMORA CATH SECURED IN PLACE. COMPLAINS OF CHRONIC BACK PAIN WHICH IS CURRENTLY AT A 4/10. EMOTIONAL SUPPORT AND REPOSITIONING PROVIDED.
[2024-04-29] MEDS ORDERED: Enoxaparin 40 MG/0.4 ML SYR SC SCH (09:00)
[2024-04-29 12:07] LABS: Adenovirus Not Detected (NOT DETECT); Bordetella pertussis Not Detected (NOT DETECT); Chlamydophila pneumoniae Not Detected (NOT DETECT); Coronavirus 229E Not Detected (NOT DETECT); Coronavirus HKU1 Not Detected (NOT DETECT); Coronavirus NL63 Not Detected (NOT DETECT); Coronavirus OC43 Not Detected (NOT DETECT); Human Metapneumovirus Not Detected (NOT DETECT); Human Rhinovirus/Enterovirus Not Detected (NOT DETECT); Influenza A/2009-H1 Not Detected (NOT DETECT); Influenza A/H1 Not Detected (NOT DETECT); Influenza A/H3 Not Detected (NOT DETECT); Influenza B Not Detected (NOT DETECT); Mycoplasma pneumoniae Not Detected (NOT DETECT); Parainfluenza Virus 1 Not Detected (NOT DETECT); Parainfluenza Virus 2 Not Detected (NOT DETECT); Parainfluenza Virus 3 Not Detected (NOT DETECT); Parainfluenza Virus 4 Not Detected (NOT DETECT); Respiratory Syncytial Virus Not Detected (NOT DETECT); SARS-Cov-2 (COVID-19), BioFire Not Detected (NOT DETECT)
--- NOTE | 2024-04-29 13:10 | NUR ---
NOTIFIED MD, DR. CABELLO, REGARDING: CONTINUED CONFUSION WITH ABDNORMAL SPEECH PATTERN AND FREQUENT "WORD SEARCHING". PT REPORT OF NUMBNESS IN BILAT LE. D5 GTT COMPLETED AT 0700 WITH NO PO INTAKE AFTERWARDS DUE TO NPO STATUS. 10:50 - SLURRED SPEECH - FSBG OF 49 WHICH IMPROVED TO 71 AFTER PO INTAKE. SKIN BREAKDOWN TO BILAT KNEES/LLE WITH PHOTO PLACED IN CHART.
--- NOTE | 2024-04-29 14:14 | NUR ---
Pt. is awake and sitting up in a recliner when he welcomes my visit. Pt. is pleasant. Pt. displays evidence of brokenness and frustration with his family relationships. With theraputic listening and a calming presence the Pt. begins to display evidence of trust. Consider matters of maribeth and belief, and in the process Pt. becomes occassionally overcome with emotion. With a calming pastoral presence rapport is established. Prayed with the Pt. Pt. displayed evidence of connecting spiritually with the Prayer. Pt. welcomed this stacker attendant to return.
[2024-04-29] MEDS ORDERED: Glucose Oral Gel 15 GM TUBE PO ONE (15:05)
--- NOTE | 2024-04-29 16:05 | NUR ---
NOTIFIED DR. CABELLO THAT PT IS REPORTING PAIN OF 01/25, "TO THE POINT IT IS GETTING INTOLERABLE." THIS PAIN IS CHRONIC IN NATURE, IN HIS BACK. WILL AWAIT MEDICATION ORDERS. NOTICING VERY UNCOORDINATED GAIT - AMBULATING WITH RN X1 AND WALKER AT THIS TIME. PT EVAL ORDERED & PENDING. ORDERS RECEIVED FOR DISCONTINUATION OF INDWELLING CATH - SEE NURSE DIRECTIVE REGARDING URINE OUTPUT AND BLADDER SCAN MANAGEMENT.
[2024-04-29] MEDS ORDERED: TraMADol HCl 50 MG Tab PO PRN (16:30)
[2024-04-29] MEDS ORDERED: Acetaminophen 325 MG TABLET PO PRN (16:30)
[2024-04-29] MEDS ORDERED: Methocarbamol 500 MG Tab PO PRN (16:35)
--- NOTE | 2024-04-29 18:26 | NUR ---
SHIFT SUMMARY: NEURO EXAM IMPROVED THROUGHOUT THE DAY, A&O X4 ON MOST RECENT ASSESSMENT. ANALGESICS ORDERED & ADMINISTERED IN 1600 HOUR WITH PAIN REMAINING AT 7/10. HR IN LOW 100S AND OTHERWISE HEMODYNAMICALLY STABLE ON ROOM AIR. ZAMORA CATH D/C'D AT 1600 AND ORDERS FOR BLADDER SCAN IF NO VOID IN 4 HOURS. IF VOLUME > 240 THEN RN TO STRAIGHT CATH. LOW BLOOD GLUCOSE HAS RESOLVED WITH PO INTAKE FROM RENAL DIET, MOST RECENTLY 120. OOB TO CHAIR FOR MAJORITY OF THE DAY, SOMEWHAT TEARFUL AT ONE POINT REGARDING HIS DIFFICULTIES WITH AMBULATION (REQUIRING WALKER & RN ASSIST, PT CONSULTED). BACK TO BED AT 1800 & RESTING COMFORTABLY IN NO ACUTE DISTRESS. REQUESTED CARE MANAGEMENT TO FOLLOW UP WITH DISCHARGE PLAN REGARDING CARE AT HOME, MEDICATION MGMT, ETC.
--- NOTE | 2024-04-29 20:02 | NUR ---
TRANSFER SUMMARY REPORT TO CAN CARRENO. PT TO TRANSFER TO ROOM 354 VIA WC. PT ON ROOM AIR. IV IS SALINE LOCKED.
[2024-04-29] MEDS ORDERED: NS 250 ML IV PRN (20:55)
[2024-04-29] MEDS ORDERED: DEPO-TESTO200 MG/18 IM (22:20)
[2024-04-30] MEDS ORDERED: FentaNYL Citrate 50 MCG/ML 2 ML Injection IV PRN (03:20)
--- NOTE | 2024-04-30 03:23 | NUR ---
NEW T-ORDER FROM ON-CALL HOSPITALIST : - IV FENTANYL 25-50 MCG Q4HRS PRN ENTERED TO [facility], SEE EMAR. NO ADDITIONAL NEW ORDERS AT THIS TIME.
[2024-04-30 03:30] VITALS: BP 126/80
--- NOTE | 2024-04-30 03:37 | NUR ---
SHIFT SUMMARY PT WAS TRANSFERRED FROM ICU TO THE MEDICAL FLOOR AT 2250. BG'S Q4 FOR S/SX HYPOGLYCEMIA. PT C/O CHRONIC BACKPAIN/SPINAL FUSION HX. MEDICATED WITH APAP AND METHOCARBAMOL W/O PAIN RELIEF. NEW ORDER FOR IV FENTANYL RECEIVED FROM ON-CALL HOSPITALIST, SEE PREVIOUS NOTE. PT VOIDED>400MLS DURING THIS SHIFT. PT TALKING TO HIMSELF IN THE ROOM, DENIES AVH,H/A, N/V, ANXIETY. NO TREMORS, DIAPHORESIS NOTED. PT APPEARS RELAXED, COOPERATIVE WITH CARE. A&O X 3-4, CONFUSED AT TIMES. PT IS ABLE TO MAKE HIS NEEDS KNOWN. PT KEEPS PUSHING THE CALL BUTTON, BUT DENIES A NEED FOR ASSISTANCE. BED ALARM FOR SAFETY, BED AT THE LOWEST POSITION, CALL LIGHT WITHIN REACH.
[2024-04-30 05:40] LABS: BASOPHILS ABSOLUTE AUTO 0.02 K/mm3 (0.00-0.23); BASOPHILS PERCENT AUTO 0 % (0-2); EOSINOPHILS ABSOLUTE AUTO 0.23 K/mm3 (0.00-0.68); EOSINOPHILS PERCENT AUTO 5 % (0-6); Hematocrit 40.6 % (37.0-53.0); Hemoglobin 13.1 g/dL (13.5-17.5); IMMATURE GRAN ABSOLUTE AUTO 0.01 K/mm3 (0.00-0.10); IMMATURE GRAN PERCENT AUTO 0 % (0-1); LYMPHOCYTES ABSOLUTE AUTO 1.41 K/mm3 (0.84-5.20); LYMPHOCYTES PERCENT AUTO 28 % (21-46); MONOCYTES ABSOLUTE AUTO 0.51 K/mm3 (0.16-1.47); MONOCYTES PERCENT AUTO 10 % (4-13); Mean Corpuscular HGB 27.9 pg (26.0-34.0); Mean Corpuscular HGB Conc 32.3 g/dL (31.5-36.5); Mean Corpuscular Volume 86 fL (80-100); Mean Platelet Volume 11.1 fL (9.1-12.4); NEUTROPHILS ABSOLUTE AUTO 2.85 K/mm3 (1.96-9.15); NEUTROPHILS PERCENT AUTO 57 % (41-73); Platelet Count 196 K/mm3 (150-400); RDW Coefficient Variation 16.3 % (11.7-14.2); RDW Standard Deviation 51.5 fL (35.1-46.3); White Blood Cell Count 5.03 K/mm3 (4.00-11.30)
[2024-04-30 06:02] LABS: Albumin, Blood 3.3 g/dL (3.4-5.0); Bilirubin, Total 0.6 mg/dL (0.1-1.0); Bun/Creatinine Ratio 13.5 (12.0-20.0); Calcium, Blood 8.5 mg/dL (8.5-10.1); Creatinine, Blood 1.63 mg/dL (0.60-1.20); Globulin, Blood 3.3 g/dL (2.2-4.0); Potassium, Blood 3.3 mmol/L (3.5-5.5); Total Protein, Blood 6.6 g/dL (6.4-8.2)
[2024-04-30] MEDS ORDERED: Potassium Chloride 20 MEQ/15 ML UDC PO ONE (07:25)
[2024-04-30] MEDS ORDERED: Glucose Oral Gel 15 GM TUBE PO PRN (07:25)
[2024-04-30] MEDS ORDERED: Potassium Chloride 10 Meq Tablet SA PO ONE (07:45)
--- NOTE | 2024-04-30 07:54 | NUR ---
CALLED DR ALLEN FOR ORDER CLARIFICATION- PT HAD 2 ORDERS FOR PO POTASSIUM SUPPLEMENT THIS MORNING. CALLED TO CLARIFY WICH DOSE TO GIVE. ORDER FOR 20MEQ DC'D, OK TO GIVE 40MEQ.
[2024-04-30 08:05] VITALS: BP 149/84
[2024-04-30] MEDS ORDERED: TraMADol HCl 50 MG Tab PO PRN (10:25)
--- NOTE | 2024-04-30 14:32 | NUR ---
Pt. is awake and sitting up in a chair. Pt. is unsettled and agitated by feeling constrained by his hospital admission. Listen with empathy and a calming presence. Seek to normalize the Pt. experience. Pt. displays evidence of agreement and a lower sense of frustration. COnsider matters of maribeth and belief. Prayed with Pt. Pt. verbalized gratitude for the spiritual care visit.
[2024-04-30] MEDS ORDERED: HyDROXyzine HCl 25 MG Tab PO PRN (15:05)
[2024-04-30 15:36] VITALS: BP 126/99
[2024-04-30] MEDS ORDERED: Pregabalin 75 MG Cap PO SCH (17:00)
--- NOTE | 2024-04-30 18:21 | NUR ---
SHIFT SUMMARY- PT ALERT AND ORIENTED, HE IS A HIGH FALL RISK AND IS IMPULSIVE, HE DOES NOT CALL APPROPRIATELY. PT WORKED WITH HIM AND STATES PT IS A 1PA THE RECOMENDATION IS HOME WITH HOME HEALTH. PT LIVES WITH HIS 93 YEAR OLD MOTHER. PT HAS BEEN VERY LABILE IN HIS EMOTIONS, ANGRY AND YELLING, TELLING STAFF HE NEEDS TO LEAVE NOW, TELLING THE DOCTOR HE IS NOT QUITE READY TO GO HOME YET, CRYING BECAUSE OF UNMANAGED PAIN, THEN LAUGHING WITH STAFF ABOUT A FUNNY STORY HE TOLD. PT HAD A C/O ANXIETY SPOKE TO AND RECIEVED PO ATARAX. PT SLEPT FOR AN HOUR AFTER THAT AND SEEMED MORE RELAXED, ALTHOUGH HE DOES NOT THINK IT HELPED. TRAMADOL DOSING CHANGED TO Q8. PT WAS ANGRY THE DOSE WAS 50MG Q12. IT WAS CHANGED TO Q8. PT STATES HE TAKES 600MG A DAY. REVIEWED PT MEDICATION CLAIM Hx AND NOTED THE PT DID FILL THAT SCRIPT ON 04/22/24. CALLED PHARMACY TO CLARIFY THAT DOSING.
[2024-04-30 19:43] VITALS: BP 139/88
[2024-04-30] MEDS ORDERED: Nortriptyline HCl 50 MG Cap PO SCH (21:00)
--- NOTE | 2024-04-30 22:44 | NUR ---
NEW ORDER FOR PEPCID 10MG PO BID PRN RECEIVED FROM THE ON-CALL HOSPITALIST BAR. ENTERED IN [email or web address], SEE EMAR. NO ADDITIONAL NEW ORDERS AT THIS TIME.
[2024-04-30] MEDS ORDERED: Famotidine 20 MG Tab PO PRN ×2 (22:45)
[2024-04-30 23:00] LABS: IGF 1 Z SCORE CALCULATION 1.2
[2024-05-01] VITALS (35 sets, daily range): BP systolic 115–179; BP diastolic 81–122
--- NOTE | 2024-05-01 03:17 | NUR ---
SHIFT SUMMARY PT IS A&O X2-3, CONFUSED, COOPERATIVE WITH CARE, BUT FORGETFUL OF LIMITATIONS. PT HAS AVH, PLAYING WITH TELE BOX, DISCONNECTING TELE LEADS AND O2 MONITORING WIRES. PT C/O 9/10 CHRONIC BACKPAIN, AND INDEGESTION AT HS. NEW ORDER FOR PEPCID RECEIVED FROM ON-CALL HOSPITALIST (SEE PREVIOUS NOTE), AND MEDICATED WITH TYLENOL PRN. @0320, PT FELL IN THE HOSPITAL ROOM, PT FOUND GETTING UP FROM THE FLOOR. PT STATED THAT THE "URINAL FELL, I SLIPPED IN PEE, I WAS COMING BACK FROM THE BATHROOM." PT DENIES HITTING HIS HEAD ON THE FLOOR, OR GETTING HURT. VSS. TELE: SR @80'S. MEDICATED WITH TRAMADOL FOR CHRONIC BACKPAIN, PT REPORTS 10/10 PAIN DURING THIS SHIFT (PRIOR TO FALL WELL). PT REPORTS THAT TRAMADOL ISN'T EFFECTIVE FOR CHRONIC BACK PAIN. B, 73. PT DID NOT GET ANY REST/SLEEP DURING THE NIGHT HRS. 2X HYDROXYZINE 25MG PRN ADMINISTERED, NOT EFFECTIVE. PT APPEARS ANXIOUS, AND DISORIENTED. REORIENTED T/O THIS SHIFT. PT PUSHING CALL LIGHT OR PULLING OUT BIOX CORD, REPORTING "I THOUGHT IT WAS A CALL LIGHT). BED ALARM ON, CALL LIGHT WITHIN REACH. RE-EDUCATED OF CALL LIGHT USE, AND RISKS OF GETTING OUT OF BED WITHOUT STAFF ASSISTANCE.
--- NOTE | 2024-05-01 04:01 | NUR ---
UNWITNESSED FALL @0320. THIS AWNING HANGER WENT TO CHECK ON THE PT AFTER HEARING FURNITURE MOVE. PT GETTING UP FROM THE FLOOR. DENIES HITTING HEAD ON THE FLOOR. SKIN INTACT AND NO INJURIES NOTED. PT IS ALERT AND ORIENTED X2-3, CONFUSED AND HAS AVH. KEEPS PLAYING WITH THE MEDICAL EQUIPMENT IN THE ROOM, AND DENIES DISCONNECTING TELE, O2 MONITORING PROBES. PT GOT UP TO USE THE BATHROOM, SLIPPED ON URINE, D/T URINAL TIPPING OVER THAT WAS PLACED ON THE BEDSIDE TABLE.SEMICONDUCTOR DEVELOPMENT TECHNICIAN NOTIFIED, ON-CALL HOSPITALIST AND BATTER MIXER NOTIFIED.
[2024-05-01 06:58] LABS: BASOPHILS ABSOLUTE AUTO 0.03 K/mm3 (0.00-0.23); BASOPHILS PERCENT AUTO 1 % (0-2); EOSINOPHILS ABSOLUTE AUTO 0.14 K/mm3 (0.00-0.68); EOSINOPHILS PERCENT AUTO 4 % (0-6); Hematocrit 41.3 % (37.0-53.0); Hemoglobin 13.5 g/dL (13.5-17.5); IMMATURE GRAN ABSOLUTE AUTO 0.01 K/mm3 (0.00-0.10); IMMATURE GRAN PERCENT AUTO 0 % (0-1); LYMPHOCYTES ABSOLUTE AUTO 1.17 K/mm3 (0.84-5.20); LYMPHOCYTES PERCENT AUTO 30 % (21-46); MONOCYTES ABSOLUTE AUTO 0.43 K/mm3 (0.16-1.47); MONOCYTES PERCENT AUTO 11 % (4-13); Mean Corpuscular HGB 28.1 pg (26.0-34.0); Mean Corpuscular HGB Conc 32.7 g/dL (31.5-36.5); Mean Corpuscular Volume 86 fL (80-100); Mean Platelet Volume 10.7 fL (9.1-12.4); NEUTROPHILS ABSOLUTE AUTO 2.17 K/mm3 (1.96-9.15); NEUTROPHILS PERCENT AUTO 55 % (41-73); Platelet Count 199 K/mm3 (150-400); RDW Coefficient Variation 16.5 % (11.7-14.2); RDW Standard Deviation 51.3 fL (35.1-46.3); White Blood Cell Count 3.95 K/mm3 (4.00-11.30)
[2024-05-01 07:33] LABS: Albumin, Blood 3.3 g/dL (3.4-5.0); Bilirubin, Total 0.4 mg/dL (0.1-1.0); Bun/Creatinine Ratio 9.6 (12.0-20.0); Calcium, Blood 8.7 mg/dL (8.5-10.1); Creatinine, Blood 1.46 mg/dL (0.60-1.20); Globulin, Blood 3.3 g/dL (2.2-4.0); Potassium, Blood 3.6 mmol/L (3.5-5.5); Total Protein, Blood 6.6 g/dL (6.4-8.2)
[2024-05-01] MEDS ORDERED: Haloperidol 5 MG Tab PO PRN (08:45)
--- NOTE | 2024-05-01 10:38 | NUR ---
PT WITHDRAWL- SPOKE TO DR ALLEN THIS MORNING THE PT HAD BEEN MEDICATED POST FALL WITH 1MG IV ATIVAN. CIWA SCORE WAS 18 UPON ASSESSMENT THIS AM. MEDICATED WITH 2MG IV ATIVAN. FOLLOW UP EXAM PT WAS STILL AGGITATED, HALLUCINATIONS AUDITORY AND VISUAL STILL PRESENT. CIWA 22. SPOKE TO DR ALLEN PO HALDOL ADMINISTERED. NO CHANGE. SPRAY UNIT FEEDER MEDICATED WITH PO ATARAX AND PO LIBRIUM. PT IN A ANNALISE VEST FOR SAFETY, 1:1 STAFF HAVE BEEN AT THE BEDSIDE FOR THE PAST HOUR. REASSESSMENT OF CIWA IS STILL 22. SPRAY UNIT FEEDER ASSISTED AND ADMINISTERED 4MG IV ATIVAN. SPOKE TO DR ALLEN SHE IS AWARE. IF THE CIWA SCORE DOES NOT DECREASE ON NEXT ASSESSMENT PT WILL NEED TRANSFER TO ICU.
[2024-05-01] MEDS ORDERED: dexmedeTOMIDine 100 ML IV SCH (11:45)
--- NOTE | 2024-05-01 11:45 | NUR ---
TRANSFER NOTE- *LATE ENTRY* PT TRANSFERED TO ICU 3. CIWA SCORE STILL 22-23. PT WAS PLACED IN A ANNALISE BUT REQUIRED 1:1 STAFF TO PREVENT INJURY. PT MOTHER ARRIVED AND THIS RN DISCUSSED THE PT CHANGE IN MENTATION AND SYMPTOMS OF WITHDRAWL HE WAS EXPERIENCING. SHE ATTEMPTED TO INTERACT WITH THE PT. HE GRABBED THE STRINGS OF HER SWEATER AND SHE PULLED BACK TO KEEP HIM FROM PULLING HER DOWN. SHE ATTEMPTED TO HUG HIM BUT WAS ADVISED BY NURSING STAFF NOT TO, HE MAY NOT LET GO IN HIS CURRENT STATE. HE REACHED OUT TO GRAB HER AND SHE PULLED BACK, HE BEGAN LASHING OUT AT HER AND ATTEMPTING TO KICK AT HER. STAFF STOPPED HIM FROM HARMING HIMSELF AND HER, SHE CHOSE TO LEAVE AT THAT TIME. DR WAS CONTACTED AND PT WAS PLACED IN TOUGH CUFFS ON 4 EXTREMITIES. TRANSFER TO ICU WAS PLANNED. BED WAS NOT READY, ADJUSTER LEADER CALLED DR AND RECIEVED A OT ORDER FOR 2MG IV ATIVAN NOW. BED BECAME AVAILABLE AND PT WAS TRANSFERED TO ICU 3 AFTER TELEPHONE REPORT WAS COMPLETED. PT WAS AWAKE AND VISIBLY HALLUCINATING. O2 SATS 98% ON ROOM AIR. ADJUSTER LEADER AND SITTER RN TRANSFERED THE PT TO ICU WITH SOME MUSIC PLAYING IN AN ATTEMPT TO DISTRACT THE PT. RESPIRATORY STATUS APPEARS UNCHANGED.
[2024-05-01] MEDS ORDERED: LORazepam 2 MG/ML 1ML Injection IV ONE (12:00)
--- NOTE | 2024-05-01 17:27 | NUR ---
ARRIVAL TO ICU/SHIFT SUMMARY PT ARRIVES TO ICU AT 1210 FOR HIGH CIWA, AGITATION AND PRECEDEX GTT. PT ARRIVES IN TAT X 4. ORIENTED TO SELF ONLY. APPEARS TO BE HAVING AUDITORY AND VISUAL HALLUCINATIONS. CIWA 23 ON ARRIVAL. PRECEDEX GTT STARTED. SINCE ARRIVAL, PT RASS RANGES FROM +4- -4. PRECEDEX TITRATED DOWN AND RESTRAINTS REMOVED, PT WOKE AT 1600, AGITATED, SWINGING ARMS, KICKING, ATTEMPTING TO GET OUT OF BED. NOT REDIRECTABLE. RESTRAINTS REPLACED. RASS -3 AT THIS TIME. LUNGS CLEAR. SR, RATE 70'S. BP STABLE. STRAIGHT CATH X 1 FOR RETENTION. WILL CONTINUE PLAN OF CARE UNTIL REPORT TO ONCOMING NURSE.
--- NOTE | 2024-05-01 20:00 | NUR ---
ASSUMED CARE OF PT AT 1900. REPORT RECEIVED AT BEDSIDE. PT PRESENTS IN BED. PT IN 4 POINT RESTRAINT. TUFF CUFFS SECONDARY TO PT'S STRENGTH. PT KICKS AT RESTRAINT AND PULLS AGAINST WRIST RESTRAINTS. PT ABLE TO CALM WITH CONVERSATION. DOES CARRY CONVERSATION MODERATELY WELL. PRECEDEX AT 0.4 MCG'S/KG/HOUR. PT HAS BEEN ABLE TO SLEEP SOME AFTER NOT BEING DISTURBED. WILL REVIEW CHART AND PLAN OF CARE FOR THIS PT.
--- NOTE | 2024-05-01 22:17 | NUR ---
PT STATED HE FELT COLD AND ASKED FOR BLANKETS. WHEN TWO WARM BLANKETS PLACED, PT DID FALL BACK ASLEEP. HIS HEART RATE BEGAN TO DROP. RATE NOTED WAS LOW [address] PRECEDEX ON HOLD AT THIS TIME. PT WAS EASY TO AWAKEN WHEREAS IS HEART RATE RETURNED TO 70'S-80'S. PT ASYMPTOMATIC. WILL MONITOR CLOSELY. WILL RESTART PRECEDEX IF NEEDED AT LOWERED RATE AND TITRATE APPROPRIATELY.
[2024-05-02] VITALS (45 sets, daily range): BP systolic 121–169; BP diastolic 76–110
[2024-05-02 03:53] LABS: BASOPHILS ABSOLUTE AUTO 0.03 K/mm3 (0.00-0.23); BASOPHILS PERCENT AUTO 1 % (0-2); EOSINOPHILS ABSOLUTE AUTO 0.14 K/mm3 (0.00-0.68); EOSINOPHILS PERCENT AUTO 3 % (0-6); Hematocrit 41.8 % (37.0-53.0); Hemoglobin 13.6 g/dL (13.5-17.5); IMMATURE GRAN ABSOLUTE AUTO 0.01 K/mm3 (0.00-0.10); IMMATURE GRAN PERCENT AUTO 0 % (0-1); LYMPHOCYTES ABSOLUTE AUTO 1.07 K/mm3 (0.84-5.20); LYMPHOCYTES PERCENT AUTO 25 % (21-46); MONOCYTES ABSOLUTE AUTO 0.37 K/mm3 (0.16-1.47); MONOCYTES PERCENT AUTO 9 % (4-13); Mean Corpuscular HGB 28.2 pg (26.0-34.0); Mean Corpuscular HGB Conc 32.5 g/dL (31.5-36.5); Mean Corpuscular Volume 87 fL (80-100); Mean Platelet Volume 10.5 fL (9.1-12.4); NEUTROPHILS ABSOLUTE AUTO 2.67 K/mm3 (1.96-9.15); NEUTROPHILS PERCENT AUTO 62 % (41-73); Platelet Count 197 K/mm3 (150-400); RDW Coefficient Variation 16.2 % (11.7-14.2); RDW Standard Deviation 50.6 fL (35.1-46.3); Red Blood Cell Count 4.82 M/mm3 (4.30-5.90); White Blood Cell Count 4.29 K/mm3 (4.00-11.30)
[2024-05-02 04:11] LABS: Albumin, Blood 3.1 g/dL (3.4-5.0); Bilirubin, Total 0.5 mg/dL (0.1-1.0); Bun/Creatinine Ratio 11.2 (12.0-20.0); Calcium, Blood 8.5 mg/dL (8.5-10.1); Creatinine, Blood 1.25 mg/dL (0.60-1.20); Globulin, Blood 3.2 g/dL (2.2-4.0); Potassium, Blood 3.4 mmol/L (3.5-5.5); Total Protein, Blood 6.3 g/dL (6.4-8.2)
--- NOTE | 2024-05-02 04:27 | NUR ---
PT HAS MAINTAINED HEART RATE 60'S TO 70'S. HAS BEEN RESTING. PRECEDEX CONTINUES AT 0.3MCG'S/KG/HOUR.
[2024-05-02] MEDS ORDERED: Potassium Chl 10MEQ/Water100ML 100 ML IV ONE (06:30)
--- NOTE | 2024-05-02 06:51 | NUR ---
HAVE DISCONTINUED RESTRAINTS FOR PT. HE WAS ABLE TO HOLD CONVERSATION WITH THIS RN. PT EXPRESSED HIS FEELINGS OF HOW HE WANTED TO MAKE SOME CHANGES IN HIS LIFE. SAT WITH PT TO ALLOW HIM TO VOICE HIS FEELINGS AND LIFE SATISFACTIONS AND FRUSTRATIONS. PT CURRENTLY RESTING IN BED. HAVE CONTINUED PRECEDEX AT THIS TIME AT 0.3 MCG'S/KG/HOUR. WILL CONTINUE TO MONITOR PT, AND WILL REPORT OFF TO ONCOMING RN.
--- NOTE | 2024-05-02 07:28 | NUR ---
ASSUMED CARE OF PATIENT AT APPROXIMATELY 0700. REPORT RECEIVED FROM WAI HANLEY. PT AWAKE IN BED, INTERACTING WITH STAFF APPROPRIATELY DURING BEDSIDE REPORT. CIWA OF 5 AT THIS TIME. CONTINUOUS CARDIAC MONITORING IN PLACE SHOWING SR, HR OF 97. BP 142/97, MAP 109. ON RA WITH O2 SATURATION OF 98%. PRECEDEX ON SB AT TIME OF BEDSIDE REPORT PT ACCIDENTALLY PULLED ONE OF HIS PIV'S. POTASSIUM INFUSING TO LAC AT THIS TIME, PT STATES THAT IT IS CAUSING DISCOMFORT. POTASSIUM ON SB, PRECEDEX RESTARTED AT 0.3 MCG/KG/HR. WILL CALL HOSPITALIST TO REQUEST PO POTASSIUM. SEE SHIFT ASSESSMENT FOR FULL DETAILS.
[2024-05-02] MEDS ORDERED: Potassium Chloride 10 Meq Tablet SA PO ONE (07:45)
--- NOTE | 2024-05-02 10:48 | NUR ---
Pt. is awake in bed when he welcomes my visit. Pt. verbalized that he was looking forward to seeing spiritual care. Facilitated a life review and considered matters of family and maribeth. Pt. displayed evidence of trust in this instructor of sociology and we considered what some of his hopes were upon his discharge. Pt. verbalized that his daughter and granddaughter were in [place], but he also displayed apprehension that he would be welcomed there. Considered more matters of maribeth and belief. Prayed with Pt. Pt. verbalized gratitude for the spiritual care visit.
--- NOTE | 2024-05-02 14:18 | NUR ---
"Spiritual Care | Nurse/Pt. Request Pt. had displayed a bout of anxiety when his nurse had contacted this steel fitter. At the time of my visit the Pt. had been medicated, and displayed evidence of more emtional control. This steel fitter facilitated a discussion of the Pts. emotions and experience. Through theraputic mistening this steel fitter was able to observe the Pt. become more at peace. Prayed with the Pt. and closed his curtain as I encouraged him to rest."
[2024-05-02] MEDS ORDERED: Ketoconazole 2% Cream 15 GM TOP SCH (15:00)
--- NOTE | 2024-05-02 17:01 | NUR ---
SHIFT SUMMARY PT REMAINED ALERT AND ORIENTED X 4 T/O ENTIRETY OF SHIFT. ABLE TO FOLLOW COMMANDS, MAKE PURPOSEFUL MOVEMENTS, AND MAKE NEEDS KNOWN. AFEBRILE AND DENIES PAIN. PRECEDEX ON SB SINCE APPROXIMATELY 0900. CIWA SCORES RANGE FROM 3-5 THIS SHIFT. ONE EPISODE OF ANXIOUSNESS FOLLOWING A VISIT FROM HIS MOTHER. MEDICATED PER EMAR WITH GOOD BENEFIT. RECEIVED TWO VISITS FROM SPIRITUAL CARE PER PT'S REQUEST. CONTINOUS CARDIAC MONITORING IN PLACE SHOWS SR-ST WITH HR IN 80'S-110'S. BP STABLE, MAP > 65. ON RA WITH O2 SATURATIONS > 92%. TOLERATED PO MEDS AND FLUIDS WELL. REPORTS DECREASED APPETITE. DID NOT EAT BREAKFAST OR LUNCH, AND PREEMPTIVELY ASKED THAT WE DO NOT SEND HIM DINNER BECAUSE HE DID NOT FEEL THAT HE WOULD WANT IT. NO BM THIS SHIFT. NO N/V. ABLE TO AMBULATE TO BSC TO URINATE. Q4 CBG'S, 70'S-100.S DERMATITIS ON SKIN CAUSING ITCHING AND DISCOMFORT, MEDICATED PER EMAR WITH GOOD BENEFIT. PIV TO RFA, SALINE LOCKED. WILL CONTINUE TO MONITOR AND REPORT TO ONCOMING RN.
--- NOTE | 2024-05-02 22:18 | NUR ---
ASSUMED CARE AT APPROX 1900 PATIENT IS A&O X4. ANXIOUS AND NEEDS REDIRECTION AT TIME. FOLLOWS COMMANDS AND UP WITH 1 PERSON ASSIST WITH FWW. SP02 95% ON RA, DENIES SOB. HR SR-ST 90s-110. BP STABLE, DENIES CP/PRESSURE. ABLE TO URINATE IN URINAL STANDING AT BEDSIDE. USES CALL LIGHT. INDEPENDENT IN BED. SEE SHIFT ASSESSMENT FOR MORE INFORMATION
[2024-05-03] VITALS: BP 136/92
[2024-05-03 02:00] VITALS: BP 146/95
[2024-05-03 04:00] VITALS: BP 147/84
[2024-05-03 04:12] LABS: Albumin, Blood 3.4 g/dL (3.4-5.0); Albumin/Globulin Ratio 1.1 (0.8-1.8); Bilirubin, Total 0.7 mg/dL (0.1-1.0); Bun/Creatinine Ratio 7.7 (12.0-20.0); Calcium, Blood 8.8 mg/dL (8.5-10.1); Creatinine, Blood 1.55 mg/dL (0.60-1.20); Globulin, Blood 3.2 g/dL (2.2-4.0); Total Protein, Blood 6.6 g/dL (6.4-8.2)
--- NOTE | 2024-05-03 06:27 | NUR ---
SHIFT SUMMARY PATIENT UNABLE TO SLEEP MOST THE NIGHT, MEDICATED FOR ANXIETY PER EMAR. SP02 97% ON RA. HR SR-ST 90s-110. BP STABLE, DENIES CP/PRESSURE. ABLE TO USE URINAL. TRANSFERS SBA WITH FWW. MEDICATED FOR BACK PAIN PER EMAR. NO ACUTE CHANGES OVERNIGHT. CALL LIGHT IN REACH
[2024-05-03 06:37] LABS: BASOPHILS ABSOLUTE AUTO 0.03 K/mm3 (0.00-0.23); BASOPHILS PERCENT AUTO 1 % (0-2); EOSINOPHILS ABSOLUTE AUTO 0.09 K/mm3 (0.00-0.68); EOSINOPHILS PERCENT AUTO 2 % (0-6); Hemoglobin 14.6 g/dL (13.5-17.5); IMMATURE GRAN ABSOLUTE AUTO 0.01 K/mm3 (0.00-0.10); IMMATURE GRAN PERCENT AUTO 0 % (0-1); LYMPHOCYTES ABSOLUTE AUTO 1.59 K/mm3 (0.84-5.20); LYMPHOCYTES PERCENT AUTO 29 % (21-46); MONOCYTES PERCENT AUTO 9 % (4-13); Mean Corpuscular HGB 28.2 pg (26.0-34.0); Mean Corpuscular HGB Conc 33.2 g/dL (31.5-36.5); Mean Corpuscular Volume 85 fL (80-100); Mean Platelet Volume 10.6 fL (9.1-12.4); NEUTROPHILS PERCENT AUTO 60 % (41-73); Platelet Count 240 K/mm3 (150-400); RDW Coefficient Variation 16.6 % (11.7-14.2); RDW Standard Deviation 50.7 fL (35.1-46.3); Red Blood Cell Count 5.17 M/mm3 (4.30-5.90); White Blood Cell Count 5.52 K/mm3 (4.00-11.30)
[2024-05-03] MEDS ORDERED: Lactated Ringer's 1,000 ML IV SCH (07:00)
[2024-05-03 07:31] VITALS: BP 140/99
[2024-05-03] MEDS ORDERED: TraMADol HCl 50 MG Tab PO ONE (13:00)
[2024-05-03] MEDS ORDERED: TraMADol HCl 50 MG Tab PO PRN (13:00)
--- NOTE | 2024-05-03 13:03 | NUR ---
REASSESSMENT PT HAS BEEN ALERT AND ORIENTED. LUNGS ARE CLEAR, RA. DR. VINSON CAME AND MADE PT MEDICAL, NO TELE STATUS. DISCUSSED LR ORDER WITH RESIDENT AND HE GAVE ORDERS TO DC IT SINCE PT IS DRINKING FLUIDS. PLAN IS FOR PT TO GO HOME, BUT PT'S FAMILY IS SAYING THAT HE CAN'T LIVE WITH HIS MOM SAFELY. CARE MANAGEMENT AND CHARGE NURSE ARE SPEAKING WITH PT AND HIS FAMILY TO FIND A SAFE SOLUTION.
[2024-05-03] MEDS ORDERED: KETO15TC TOP (13:33)
--- NOTE | 2024-05-03 13:52 | NUR ---
DISCHARGE INSTRUCTIONS GIVEN TO PT PERTAINING TO MEDICATIONS AND FOLLOW UP APPOINTMENTS. PT'S MEDICATIONS RETRIEVED FROM PHARMACY AND GIVEN TO PT. PLAN IS FOR PT TO DISCHARGE HOME WITH HIS FAMILY AND HOME HEALTH. FAMILY IS AT HOME GETTING HOME READY, THEN WILL COME BACK AND GET HIM. PT IS GETTING VERY ANXIOUS, NOT WANTING TO WAIT FOR HIS FAMILY. ENCOURAGING PT TO BE PATIENT.
--- NOTE | 2024-05-03 15:43 | NUR ---
DISCHARGE PT DISCHARGED WITH HIS FAMILY VIA PRIVATE VEHICLE. MEDICATIONS AND BELONGINGS SENT HOME WITH PT.
== END 2024-05-03 15:45 | disposition home or self-care (01) | DRG 917 ==
LOC: ER 15:20 → ICUE 15:21 → ERHOLD 15:21 → ICUE 04-29 00:10 → MEDS 04-29 20:15 → ICUE 05-01 11:28 → MEDS 05-01 11:28 → ICUE 05-01 12:07
PROVIDERS: Internal Medicine; Physician Assistant; ADMIT Student in an Organized Health Care Education/Training Program
PROC: HZ2ZZZZ Detoxification Services for Substance Abuse Treatment (ICD-10-PCS; principal; 2024-05-01)
DX: T40.421A Poisoning by tramadol, accidental (unintentional), initial encounter (principal); G92.8 Other toxic encephalopathy; J96.01 Acute respiratory failure with hypoxia; J96.02 Acute respiratory failure with hypercapnia; N17.9 Acute kidney failure, unspecified; F11.20 Opioid dependence, uncomplicated; F10.139 Alcohol abuse with withdrawal, unspecified; N18.32 Chronic kidney disease, stage 3b; I12.9 Hypertensive chronic kidney disease with stage 1 through stage 4 chronic kidney disease, or unspecified chronic kidney disease; E16.2 Hypoglycemia, unspecified; E87.6 Hypokalemia; L21.9 Seborrheic dermatitis, unspecified; F32.A Depression, unspecified; G40.909 Epilepsy, unspecified, not intractable, without status epilepticus; G89.4 Chronic pain syndrome; R29.6 Repeated falls; F41.9 Anxiety disorder, unspecified; R45.1 Restlessness and agitation; Y90.0 Blood alcohol level of less than 20 mg/100 ml; M51.369 Other intervertebral disc degeneration, lumbar region without mention of lumbar back pain or lower extremity pain; K21.9 Gastro-esophageal reflux disease without esophagitis; N52.9 Male erectile dysfunction, unspecified; Z98.890 Other specified postprocedural states; Z98.1 Arthrodesis status; Z79.899 Other long term (current) drug therapy
CPT/HCPCS: 0202U; 36415; 51701; 51702; 70450; 72125; 80053; 80320; 82140; 82533; 82803; 82947; 83605; 83735; 84305; 84439; 84443; 84681; 85025; 87070; 87205; 93005; 93010; 94762; 96365-59; 96366-59; 96367-59; 96368; 96375-59; 97110; 97116; 97162; 97530; 99285-25; A9270; G0378; G0480; J1200; J1650; J2060; J2310; J3010; J3411; J3480; J7040; J7050; J7799

== ENCOUNTER 2024-05-20 08:21 | Emergency (ER) | payer OTHER ==
[~2024-05-20] VITALS: Ht 167.6 cm; Wt 83.9 kg
[~2024-05-20 08:21] MED LIST changes: +DEPO-TESTO200 MG/18 IM; +KETO15TC TOP; +Nortriptyline H50 MG PO
[2024-05-20 08:33] VITALS: BP 119/81
[2024-05-20] MEDS ORDERED: HYDROmorphone HCl/Pf 1MG SYR IV ONE (08:50)
[2024-05-20 08:57] LABS: BASOPHILS ABSOLUTE AUTO 0.02 K/mm3 (0.00-0.23); BASOPHILS PERCENT AUTO 0 % (0-2); EOSINOPHILS ABSOLUTE AUTO 0.08 K/mm3 (0.00-0.68); EOSINOPHILS PERCENT AUTO 1 % (0-6); Hematocrit 44.1 % (37.0-53.0); Hemoglobin 14.4 g/dL (13.5-17.5); IMMATURE GRAN ABSOLUTE AUTO 0.02 K/mm3 (0.00-0.10); IMMATURE GRAN PERCENT AUTO 0 % (0-1); LYMPHOCYTES ABSOLUTE AUTO 0.87 K/mm3 (0.84-5.20); LYMPHOCYTES PERCENT AUTO 11 % (21-46); MONOCYTES ABSOLUTE AUTO 0.46 K/mm3 (0.16-1.47); MONOCYTES PERCENT AUTO 6 % (4-13); Mean Corpuscular HGB 27.3 pg (26.0-34.0); Mean Corpuscular HGB Conc 32.7 g/dL (31.5-36.5); Mean Corpuscular Volume 84 fL (80-100); Mean Platelet Volume 10.4 fL (9.1-12.4); NEUTROPHILS PERCENT AUTO 82 % (41-73); Platelet Count 235 K/mm3 (150-400); RDW Coefficient Variation 16.4 % (11.7-14.2); RDW Standard Deviation 50.5 fL (35.1-46.3); Red Blood Cell Count 5.28 M/mm3 (4.30-5.90); White Blood Cell Count 8.15 K/mm3 (4.00-11.30)
[2024-05-20 09:11] LABS: Albumin, Blood 3.7 g/dL (3.4-5.0); Albumin/Globulin Ratio 1.1 (0.8-1.8); Bilirubin, Total 0.5 mg/dL (0.1-1.0); Bun/Creatinine Ratio 12.8 (12.0-20.0); Calcium, Blood 8.6 mg/dL (8.5-10.1); Creatinine, Blood 1.56 mg/dL (0.60-1.20); Globulin, Blood 3.4 g/dL (2.2-4.0); Potassium, Blood 3.2 mmol/L (3.5-5.5); Total Protein, Blood 7.1 g/dL (6.4-8.2)
[2024-05-20] MEDS ORDERED: Potassium Chloride 20 MEQ TabCR PO ONE (10:20)
[2024-05-20 10:25] LABS: Source, Urine Clean Catch
[2024-05-20 10:31] LABS: Bilirubin, Urine Neg (Neg); Blood, Urine Neg (Neg); Glucose Qualitative, Urine Neg (Neg); Ketones, Urine Neg (Neg); Leukocyte Esterase, Urine Neg (Neg); Nitrite, Urine Neg (Neg); Protein, Urine 1+ (Neg); Specific Gravity, Urine 1.015 (1.003-1.022); Urobilinogen, Urine NORM (Normal); pH, Urine 6.5 (5.0-8.0)
[2024-05-20 11:11] LABS: Appearance, Urine Clear (Clear); Color, Urine Yellow (P-Yellow)
== END 2024-05-20 10:37 | disposition left against medical advice (07) ==
LOC: ER 08:21
PROVIDERS: Physician Assistant
DX: R10.12 Left upper quadrant pain (principal); E87.6 Hypokalemia; I12.9 Hypertensive chronic kidney disease with stage 1 through stage 4 chronic kidney disease, or unspecified chronic kidney disease; N18.30 Chronic kidney disease, stage 3 unspecified; K21.9 Gastro-esophageal reflux disease without esophagitis; Z79.899 Other long term (current) drug therapy
CPT/HCPCS: 71046; 74177; 80053; 85025; 96374-59; 99283-25; J1171; Q9967

== ENCOUNTER → 2024-10-23 | Outpatient (CLI) | payer MEDICARE ==
[2024-10-23 15:35] LABS: U Amphetamine Screen Not Detected; U Barbituate Screen Not Detected; U Benzodiazapine Screen Not Detected; U Buprenorphine Screen Not Detected; U Cannabinoids Screen DETECTED; U Cocaine Screen Not Detected; U Methadone Screen Not Detected; U Methamphetamine Screen Not Detected; U Opiates Screen Not Detected; U Oxycodone Screen DETECTED; U Phencyclidine Screen Not Detected
== END ==
LOC: LAB 13:07 → LAB SHORT 13:07
PROVIDERS: Internal Medicine Hematology & Oncology
DX: M54.10 Radiculopathy, site unspecified (principal)

== ENCOUNTER 2024-11-20 15:39 | Emergency (ER) | payer MEDICARE ==
[~2024-11-20] VITALS: Ht 167.6 cm; Wt 90.7 kg
[2024-11-20 15:47] VITALS: BP 184/99
[2024-11-20] MEDS ORDERED: RX Prepack 2 Sprays Naloxone HCL 4 MG/SPRAY UD ONE (16:15)
== END 2024-11-20 16:26 | disposition home or self-care (01) ==
LOC: ER 15:39
DX: T40.2X1A Poisoning by other opioids, accidental (unintentional), initial encounter (principal); Z53.29 Procedure and treatment not carried out because of patient's decision for other reasons; I12.9 Hypertensive chronic kidney disease with stage 1 through stage 4 chronic kidney disease, or unspecified chronic kidney disease; N18.30 Chronic kidney disease, stage 3 unspecified; K21.9 Gastro-esophageal reflux disease without esophagitis; Z79.899 Other long term (current) drug therapy; Z79.84 Long term (current) use of oral hypoglycemic drugs
CPT/HCPCS: 99284; A9270

== ENCOUNTER 2025-02-19 11:46 | Emergency (ER) | payer MEDICARE ==
[~2025-02-19] VITALS: Ht 167.6 cm; Wt 86.6 kg
[2025-02-19 12:11] LABS: BASOPHILS ABSOLUTE AUTO 0.03 K/mm3 (0.00-0.23); BASOPHILS PERCENT AUTO 1 % (0-2); EOSINOPHILS ABSOLUTE AUTO 0.19 K/mm3 (0.00-0.68); EOSINOPHILS PERCENT AUTO 4 % (0-6); Hematocrit 43.1 % (37.0-53.0); Hemoglobin 13.8 g/dL (13.5-17.5); IMMATURE GRAN ABSOLUTE AUTO 0.01 K/mm3 (0.00-0.10); IMMATURE GRAN PERCENT AUTO 0 % (0-1); LYMPHOCYTES ABSOLUTE AUTO 1.30 K/mm3 (0.84-5.20); LYMPHOCYTES PERCENT AUTO 25 % (21-46); MONOCYTES ABSOLUTE AUTO 0.41 K/mm3 (0.16-1.47); MONOCYTES PERCENT AUTO 8 % (4-13); Mean Corpuscular HGB Conc 32.0 g/dL (31.5-36.5); Mean Corpuscular Volume 90 fL (80-100); NEUTROPHILS ABSOLUTE AUTO 3.25 K/mm3 (1.96-9.15); NEUTROPHILS PERCENT AUTO 63 % (41-73); NRBC ABSOLUTE 0.00 K/mm3 (0.00-0.02); NRBC Auto 0.0 /100 WBC (0.0-0.2); Platelet Count 166 K/mm3 (150-400); RDW Coefficient Variation 16.9 % (11.7-14.2); RDW Standard Deviation 54.8 fL (35.1-46.3)
[2025-02-19 12:25] LABS: Prothrombin Time Results 11.4 Sec (9.7-11.5)
[2025-02-19 12:44] LABS: Alanine Aminotransfer (ALT/SGP 21 U/L (12-78); Albumin, Blood 3.4 g/dL (3.4-5.0); Albumin/Globulin Ratio 1.0 (0.8-1.8); Anion Gap 5 mmol/L (3-11); Aspartate Aminotrans (AST/SGOT 19 U/L (12-37); Bilirubin, Total 0.3 mg/dL (0.1-1.0); Blood Urea Nitrogen 14 mg/dL (8-24); CO2, Blood 34 mmol/L (21-32); Calcium, Blood 9.1 mg/dL (8.5-10.1); Chloride, Blood 104 mmol/L (98-108); Creatinine, Blood 1.40 mg/dL (0.60-1.20); Ethanol (Alcohol), Blood, Med <3 mg/dL; Globulin, Blood 3.5 g/dL (2.2-4.0); Glucose, Blood 127 mg/dL (70-99); Potassium, Blood 4.2 mmol/L (3.5-5.5); Sodium, Blood 139 mmol/L (136-145); Total Protein, Blood 6.9 g/dL (6.4-8.2)
[2025-02-19] MEDS ORDERED: HYDROmorphone HCl/Pf 1MG SYR IV ONE (13:10)
[2025-02-19] MEDS ORDERED: Ondansetron HCl 2 MG / ML 2ML Vial IV ONE (13:10)
[2025-02-19 13:35] VITALS: BP 148/101
[2025-02-19 14:04] LABS: Source, Urine Voided
[2025-02-19] MEDS ORDERED: IBUP600 PO (14:30)
[2025-02-19] MEDS ORDERED: HYDROCODONE-AC1 EA10 PO (14:30)
[2025-02-19 14:34] LABS: Bilirubin, Urine Neg (Neg); Glucose Qualitative, Urine Neg (Neg); Ketones, Urine Neg (Neg); Leukocyte Esterase, Urine Neg (Neg); Protein, Urine Neg (Neg); Specific Gravity, Urine 1.010 (1.003-1.022); Urobilinogen, Urine NORM (Normal)
[2025-02-19 14:42] LABS: Color, Urine Pale Yellow (P-Yellow)
[2025-02-19 14:46] LABS: U Cannabinoids Screen DETECTED
[2025-02-19 14:47] LABS: U Amphetamine Screen Not Detected; U Barbituate Screen Not Detected; U Benzodiazapine Screen Not Detected; U Buprenorphine Screen Not Detected; U Cocaine Screen Not Detected; U Methadone Screen Not Detected; U Methamphetamine Screen Not Detected; U Opiates Screen Not Detected; U Oxycodone Screen DETECTED; U Phencyclidine Screen Not Detected
== END 2025-02-19 15:30 | disposition home or self-care (01) ==
LOC: ER 11:46
PROVIDERS: Emergency Medicine
DX: S01.01XA Laceration without foreign body of scalp, initial encounter (principal); S20.229A Contusion of unspecified back wall of thorax, initial encounter; Z79.899 Other long term (current) drug therapy; K21.9 Gastro-esophageal reflux disease without esophagitis; W18.30XA Fall on same level, unspecified, initial encounter
CPT/HCPCS: 12001; 70450; 72125; 72128; 72131; 80053; 80320; 81003; 83690; 85025; 85610; 93005; 93010; 96374-59; 96375-59; 99284-25; J1171; J2405